=== PATIENT | female | born 1935 | race Caucasian/White ===

== ENCOUNTER 2020-03-07 07:07 | Inpatient (IN) | payer MEDICAID, MEDICARE ==
[2020-03-07] MEDS ORDERED: Sodium Chloride 0.9% 10 ML Syringe FLUSH PRN (07:39)
[2020-03-07] MEDS ORDERED: LORazepam 2 MG/ML SDV IVPUSH ONE (07:42)
[2020-03-07] MEDS ORDERED: Zolpidem 10 MG Tab PO STA (07:43)
[2020-03-07] MEDS ORDERED: Potassium Chloride 20 MEQ Tab.ER PO ONE (08:40)
[2020-03-07] MEDS ORDERED: NS + KCl 20mEq/L 1,000 ML IV SCH (08:45)
--- NOTE | 2020-03-07 09:16 | EDM.PDOC ---
ED HPI GENERAL MEDICAL PROBLEM - General Chief Complaint: General Time Seen by Provider: 03/07/20 07:40 Source of Information: Reports: Patient, Family History Limitations: Reports: No Limitations - History of Present Illness INITIAL COMMENTS - FREE TEXT/NARRATIVE: Patient presented to the ED because of weakness, poor oral intake and inability to sleep for more than 3 days. She also c/o N/V x1 without any abdominal pain. There is no cough and cold, no fever or chills. Yesterday her legs gave out because of weakness and almost fell down. 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 , Endocrine/Metabolic History: Reports: Diabetes, Type II - Past Surgical History Musculoskeletal Surgical History: Reports: Other (See Below) Social & Family History - Family History Family Medical History: Noncontributory ED ROS GENERAL - Review of Systems Review Of Systems: See Below Constitutional: Reports: Weakness HEENT: Reports: No Symptoms Respiratory: Reports: No Symptoms Cardiovascular: Reports: No Symptoms Endocrine: Reports: No Symptoms GI/Abdominal: Reports: No Symptoms : Reports: No Symptoms Musculoskeletal: Reports: No Symptoms Skin: Reports: No Symptoms Neurological: Reports: No Symptoms Psychiatric: Reports: No Symptoms ED EXAM, GENERAL - Physical Exam Exam: See Below Exam Limited By: No Limitations General Appearance: Alert, No Apparent Distress Eye Exam: Bilateral Eye: PERRL Ears: Normal External Exam, Normal Canal Nose: Normal Inspection, Normal Mucosa Throat/Mouth: Normal Inspection, Normal Lips, Normal Teeth Head: Atraumatic, Normocephalic Neck: Normal Inspection, Supple, Non-Tender, Full Range of Motion Respiratory/Chest: No Respiratory Distress, Lungs Clear, Normal Breath Sounds Cardiovascular: Normal Peripheral Pulses, Regular Rate, Rhythm, No Edema, No Gallop GI/Abdominal: Normal Bowel Sounds, Soft, Non-Tender, No Organomegaly Back Exam: Normal Inspection, Full Range of Motion Extremities: Normal Inspection, Normal Range of Motion Neurological: Alert, Oriented, CN II-XII Intact Psychiatric: Normal Affect Course - Vital Signs Text/Narrative:: Labs/EKG/CXR results was discussed with patient and his son NS with 20 MeQ KCL Klor con 40 meq po x1 Ativan 1 mg IV x1 Zolpidem 5 mg po x1 Case discussed with Dr Allen - Orders/Labs/Meds Orders: Active Orders 24 hr Category Date Time Status EKG Documentation Completion [RC] ASDIRECTED Care 03/07/20 07:41 Active Chest 1V Frontal [CR] Stat Exams 03/07/20 07:39 Taken NS + KCl 20mEq/L [Normal Saline with 20 mEq KCl] 1,000 Med 03/07/20 08:45 Active ml IV ASDIRECTED Sodium Chloride 0.9% [Normal Saline] 1,000 ml Med 03/07/20 08:30 Active IV ASDIRECTED Sodium Chloride 0.9% [Saline Flush] Med 03/07/20 07:39 Active 10 ml FLUSH ASDIRECTED PRN Saline Lock Insert [OM.PC] Routine Oth 03/07/20 07:39 Ordered EKG 12 Lead [EK] Routine Ther 03/07/20 07:39 Ordered Medication Orders Sodium Chloride (Normal Saline) 1,000 mls @ 500 mls/hr IV ASDIRECTED NICHOLAS Potassium Chloride/Sodium Chloride (Normal Saline With 20 Meq Kcl) 1,000 mls @ 500 mls/hr IV ASDIRECTED NICHOLAS Last Admin: 03/07/20 08:48 Dose: 500 mls/hr Documented by: JIMMY Sodium Chloride (Saline Flush) 10 ml FLUSH ASDIRECTED PRN PRN Reason: Keep Vein Open Labs: Laboratory Tests 03/07/20 03/07/20 03/07/20 Range/Units 08:05 08:05 08:05 WBC 19.9 H (4.5-12.0) X10-3/uL RBC 3.63 (3.23-5.20) x10(6)uL Hgb 10.1 L (11.5-15.5) g/dL Hct 31.2 (30.0-51.3) % MCV 85.9 (80-96) fL MCH 27.7 (27.7-33.6) pg MCHC 32.3 (32.2-35.4) g/dL RDW 17.6 H (11.5-15.5) % Plt Count 794 H (125-369) X10(3)uL MPV 7.8 (7.4-10.4) fL Add Manual Diff Yes Neutrophils % (Manual) 81 (46-82) % Band Neutrophils % 3 (0-6) % Lymphocytes % (Manual) 10 L (13-37) % Monocytes % (Manual) 5 (4-12) % Metamyelocytes % 1 H (0-0) % Sodium 135 (135-145) mmol/L Potassium 2.3 L* (3.5-5.3) mmol/L Chloride 99 L (100-110) mmol/L Carbon Dioxide 22 (21-32) mmol/L BUN 36 H (7-18) mg/dL Creatinine 1.1 H (0.55-1.02) mg/dL Est Cr Clr Drug Dosing TNP Estimated GFR (MDRD) 46 L (>60) BUN/Creatinine Ratio 32.7 H (9-20) Glucose 143 H (80-116) mg/dL Calcium 9.5 (8.6-10.2) mg/dL Total Bilirubin 1.1 (0.1-1.3) mg/dL AST 62 H (5-25) IU/L ALT 32 (12-36) U/L Alkaline Phosphatase 511 H (56-112) IU/L Troponin I 24.7 (4.0-60.3) pg/mL Total Protein 6.5 (6.0-8.0) g/dL Albumin 1.3 L* (2.9-4.5) g/dL Globulin 5.2 g/dL Albumin/Globulin Ratio 0.3 Urine Color (YELLOW) Urine Appearance (CLEAR) Urine pH (5.0-6.5) Ur Specific [place] (1.010-1.025) Urine Protein (NEGATIVE) mg/dL Urine Glucose (UA) (NORMAL) mg/dL Urine Ketones (NEGATIVE) mg/dL Urine Occult Blood (NEGATIVE) Urine Nitrite (NEGATIVE) Urine Bilirubin (NEGATIVE) Urine Urobilinogen (NEGATIVE) mg/dL Ur Leukocyte Esterase (NEGATIVE) Urine WBC (0-5) Ur Squamous Epith Cells (NS,R,O) Urine Bacteria (NS) 03/07/ Range/Units 08:35 WBC (4.5-12.0) X10-3/uL RBC (3.23-5.20) x10(6)uL Hgb (11.5-15.5) g/dL Hct (30.0-51.3) % MCV (80-96) fL MCH (27.7-33.6) pg MCHC (32.2-35.4) g/dL RDW (11.5-15.5) % Plt Count (125-369) X10(3)uL MPV (7.4-10.4) fL Add Manual Diff Neutrophils % (Manual) (46-82) % Band Neutrophils % (0-6) % Lymphocytes % (Manual) (13-37) % Monocytes % (Manual) (4-12) % Metamyelocytes % (0-0) % Sodium (135-145) mmol/L Potassium (3.5-5.3) mmol/L Chloride (100-110) mmol/L Carbon Dioxide (21-32) mmol/L BUN (7-18) mg/dL Creatinine (0.55-1.02) mg/dL Est Cr Clr Drug Dosing Estimated GFR (MDRD) (>60) BUN/Creatinine Ratio (9-20) Glucose (80-116) mg/dL Calcium (8.6-10.2) mg/dL Total Bilirubin (0.1-1.3) mg/dL AST (5-25) IU/L ALT (12-36) U/L Alkaline Phosphatase (56-112) IU/L Troponin I (4.0-60.3) pg/mL Total Protein (6.0-8.0) g/dL Albumin (2.9-4.5) g/dL Globulin g/dL Albumin/Globulin Ratio Urine Color Yellow (YELLOW) Urine Appearance Slightly cloudy (CLEAR) Urine pH 6.0 (5.0-6.5) Ur Specific [place] 1.010 (1.010-1.025) Urine Protein Trace (NEGATIVE) mg/dL Urine Glucose (UA) Normal (NORMAL) mg/dL Urine Ketones 15 H (NEGATIVE) mg/dL Urine Occult Blood Negative (NEGATIVE) Urine Nitrite Negative (NEGATIVE) Urine Bilirubin Negative (NEGATIVE) Urine Urobilinogen 1 H (NEGATIVE) mg/dL Ur Leukocyte Esterase Moderate H (NEGATIVE) Urine WBC 20-30 H (0-5) Ur Squamous Epith Cells Occasional (NS,R,O) Urine Bacteria Many H (NS) Meds: Medications Generic Name Dose Route Start Last Admin Trade Name Freq PRN Reason Stop Dose Admin Sodium Chloride 1,000 mls @ 500 mls/hr 03/07/20 08:30 Normal Saline IV ASDIRECTED NICHOLAS Potassium Chloride/Sodium Chloride 1,000 mls @ 500 mls/hr 03/07/20 08:45 03/07/20 08:48 Normal Saline With 20 Meq Kcl IV 500 mls/hr ASDIRECTED NICHOLAS Administration Sodium Chloride 10 ml 03/07/20 07:39 Saline Flush FLUSH ASDIRECTED PRN Keep Vein Open Discontinued Medications Generic Name Dose Route Start Last Admin Trade Name Freq PRN Reason Stop Dose Admin Lorazepam 1 mg 03/07/20 07:42 Ativan IVPUSH 03/07/20 07:43 ONETIME ONE Potassium Chloride 40 meq 03/07/20 08:40 03/07/20 08:48 Klor-Con M20 PO 03/07/20 08:41 40 meq ONETIME ONE Administration Zolpidem Tartrate 5 mg 03/07/20 07:43 Ambien PO 03/07/20 07:44 NOW STA Departure - Departure Time of Disposition: 09:25 Disposition: Refer to Observation Condition: Good Clinical Impression: Dehydration, Hypokalemia, Weakness, Hypoalbuminemia, UTI (urinary tract infection) - Discharge Information Referrals: PCP,None [Primary Care Provider] - - My Orders Last 24 Hours: My Active Orders 03/07/20 07:39 Chest 1V Frontal [CR] Stat Sodium Chloride 0.9% [Saline Flush] 10 ml FLUSH ASDIRECTED PRN Saline Lock Insert [OM.PC] Routine EKG 12 Lead [EK] Routine 03/07/20 07:41 EKG Documentation Completion [RC] ASDIRECTED 03/07/20 08:30 Sodium Chloride 0.9% [Normal Saline] 1,000 ml IV ASDIRECTED 03/07/20 08:45 NS + KCl 20mEq/L [Normal Saline with 20 mEq KCl] 1,000 ml IV ASDIRECTED - Assessment/Plan Last 24 Hours: My Active Orders 03/07/20 07:39 Chest 1V Frontal [CR] Stat Sodium Chloride 0.9% [Saline Flush] 10 ml FLUSH ASDIRECTED PRN Saline Lock Insert [OM.PC] Routine EKG 12 Lead [EK] Routine 03/07/20 07:41 EKG Documentation Completion [RC] ASDIRECTED 03/07/20 08:30 Sodium Chloride 0.9% [Normal Saline] 1,000 ml IV ASDIRECTED 03/07/20 08:45 NS + KCl 20mEq/L [Normal Saline with 20 mEq KCl] 1,000 ml IV ASDIRECTED
--- NOTE | 2020-03-07 10:48 | CR ---
INDICATION: Weakness. CHEST, ONE VIEW: AP upright portable view of the chest 03/07/20 was compared with 08/13/16 and 08/23/16. The heart remains normal in size and shape. The aorta is tortuous with some minimal calcification in the arch. Lungs appear to be somewhat hyperaerated with flattened diaphragm leafs suggesting COPD. A mild dextroconcave scoliosis of the thoracic spine is noted with hypertrophic degenerative changes of mild to moderate degree in the mid thoracic spine. IMPRESSION: 1. No acute process. 2. COPD. 3. ASD aorta. 4. Mild scoliosis with DJD spine. MTDD
[2020-03-07] MEDS ORDERED: cefTRIAXone 1 GM in Sodium Chloride 0.9% 50 ML IV SCH (11:15)
[2020-03-07] MEDS: cefTRIAXone 1 GM Vial IVPUSH SCH (12:09)
[2020-03-07] MEDS: Enoxaparin 30 MG/0.3 ML Syringe SUBCUT SCH (12:13)
--- NOTE | 2020-03-07 13:36 | PCM.HP.2 ---
H&P History of Present Illness - General Date of Service: 03/07/20 Admit Problem/Dx: Admission Diagnosis/Problem Admission Diagnosis/Problem Dehydration Source of Information: Patient, Family History Limitations: Reports: No Limitations - History of Present Illness Initial Comments - Free Text/Narative: This is an 85-year-old female patient lives alone in [facility]. 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 She states for the last month she's not really eating at all or drink at all. She's become progressively more weak and has had a fall. She's also some diarrhea that is upper she is also vomited last couple days. last 3 days she's not able to get out of bed. she says she can't sleep in her mind is going all the time. she denies fevers, chills, cough, runny nose, dysuria, pyuria, hematuria, abdominal pain. she was supposed to get a pet scan today and in 2 days see oncology in [facility] in regards to the new diagnosis of malignant sarcoma of the left thigh. - Related Data Allergies/Adverse Reactions: Allergies Allergy/AdvReac Type Severity Reaction Status Date / Time lisinopril Allergy Cannot Verified 03/07/20 09:01 Remember meperidine Allergy Cannot Verified 03/07/20 09:01 Remember metformin Allergy Irritabilit Verified 03/07/20 09:01 y phenytoin Allergy Cannot Verified 03/07/20 09:01 Remember Home Medications: Home Meds Aspirin [Adult Low Dose Aspirin EC] 81 mg PO DAILY 08/06/16 [History] Pioglitazone [Actos] 15 mg PO DAILY 08/06/16 [History] Simvastatin 80 mg PO BEDTIME 08/06/16 [History] Cholecalciferol (Vitamin D3) [Vitamin D3] 25 mcg PO DAILY 03/07/20 [History] Omeprazole 20 mg PO BIDAC 03/07/20 [History] Polyvinyl Alcohol/Povidone [Refresh] 1 drop EYEBOTH ASDIRECTED PRN 03/07/20 [History] amLODIPine [Norvasc] 5 mg PO DAILY 03/07/20 [History] Past Medical History HEENT History: Reports: None Other HEENT History: wears glasses Cardiovascular History: Reports: High Cholesterol, Hypertension, SOB on Exertion Respiratory History: Reports: PE, SOB Gastrointestinal History: Reports: Bowel Obstruction, Colon Polyp, GERD Genitourinary History: Reports: Renal Disease, Other (See Below) 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 , Musculoskeletal History: Reports: Arthritis, Back Pain, Chronic Neurological History: Reports: None Psychiatric History: Reports: Anxiety Endocrine/Metabolic History: Reports: Diabetes, Type II Other Oncologic History: soft tissue sarcoma - Infectious Disease History Infectious Disease History: Reports: Measles, Mumps Other Infectious Disease History: covid neg 2 weeks done per essenthia - Past Surgical History HEENT Surgical History: Reports: Adenoidectomy, Cataract Surgery, Tonsillectomy Cardiovascular Surgical History: Reports: None Respiratory Surgical History: Reports: None GI Surgical History: Reports: Appendectomy, Colonoscopy Female Surgical History: Reports: Hysterectomy, Oophorectomy Endocrine Surgical History: Reports: None Neurological Surgical History: Reports: None Other Musculoskeletal Surgeries/Procedures:: foot surgery- bone removed ?spur Other Oncologic Surgeries/Procedures: biopsy done on lump on leg Social & Family History - Family History Family Medical History: Noncontributory - Tobacco Use Smoking Status *Q: Never Smoker Second Hand Smoke Exposure: No - Caffeine Use Caffeine Use: Reports: Soda - Recreational Drug Use Recreational Drug Use: No H&P Review of Systems - Review of Systems: Review Of Systems: See Below General: Reports: Weakness, Fatigue, Decreased Appetite HEENT: Reports: No Symptoms Cardiovascular: Reports: No Symptoms Gastrointestinal: Reports: Nausea, Vomiting Genitourinary: Reports: No Symptoms Musculoskeletal: Reports: Other (See HPI) Skin: Reports: No Symptoms Psychiatric: Reports: No Symptoms Neurological: Reports: No Symptoms Hematologic/Lymphatic: Reports: No Symptoms Immunologic: Reports: No Symptoms Exam - Exam Exam: See Below - Vital Signs Vital Signs: Last Vital Signs Temp 97.1 F 03/07/20 09:46 Pulse Resp BP Pulse Ox Weight: 133 lb 3.2 oz - Exam General: Alert, Oriented, Cooperative HEENT: Hearing Intact, Mucosa Moist & [place] Neck: Supple, Trachea Midline Lungs: Clear to Auscultation, Normal Respiratory Effort Cardiovascular: Regular Rate, Regular Rhythm GI/Abdominal Exam: Normal Bowel Sounds, Soft, Non-Tender, No Organomegaly, No Distention, No Abnormal Bruit, No Mass Extremities: Normal Inspection, Non-Tender, No Pedal Edema, Normal Capillary Refill Skin: Warm, Dry, Intact Neuro Extensive - Mental Status: Alert, Oriented x3, Normal Mood/Affect, Normal Cognition Psychiatric: Alert, Normal Affect, Normal Mood - Patient Data Lab Results Last 24 hrs: Laboratory Results - last 24 hr 03/07/20 03/07/20 03/07/20 Range/Units 08:05 08:05 08:05 WBC 19.9 H (4.5-12.0) X10-3/uL RBC 3.63 (3.23-5.20) x10(6)uL Hgb 10.1 L (11.5-15.5) g/dL Hct 31.2 (30.0-51.3) % MCV 85.9 (80-96) fL MCH 27.7 (27.7-33.6) pg MCHC 32.3 (32.2-35.4) g/dL RDW 17.6 H (11.5-15.5) % Plt Count 794 H (125-369) X10(3)uL MPV 7.8 (7.4-10.4) fL Add Manual Diff Yes Neutrophils % (Manual) 81 (46-82) % Band Neutrophils % 3 (0-6) % Lymphocytes % (Manual) 10 L (13-37) % Monocytes % (Manual) 5 (4-12) % Metamyelocytes % 1 H (0-0) % Sodium 135 (135-145) mmol/L Potassium 2.3 L* (3.5-5.3) mmol/L Chloride 99 L (100-110) mmol/L Carbon Dioxide 22 (21-32) mmol/L BUN 36 H (7-18) mg/dL Creatinine 1.1 H (0.55-1.02) mg/dL Est Cr Clr Drug Dosing TNP Estimated GFR (MDRD) 46 L (>60) BUN/Creatinine Ratio 32.7 H (9-20) Glucose 143 H (80-116) mg/dL Lactic Acid (0.4-2.0) mmol/L Calcium 9.5 (8.6-10.2) mg/dL Total Bilirubin 1.1 (0.1-1.3) mg/dL AST 62 H (5-25) IU/L ALT 32 (12-36) U/L Alkaline Phosphatase 511 H (56-112) IU/L Troponin I 24.7 (4.0-60.3) pg/mL Total Protein 6.5 (6.0-8.0) g/dL Albumin 1.3 L* (2.9-4.5) g/dL Globulin 5.2 g/dL Albumin/Globulin Ratio 0.3 Urine Color (YELLOW) Urine Appearance (CLEAR) Urine pH (5.0-6.5) Ur Specific [place] (1.010-1.025) Urine Protein (NEGATIVE) mg/dL Urine Glucose (UA) (NORMAL) mg/dL Urine Ketones (NEGATIVE) mg/dL Urine Occult Blood (NEGATIVE) Urine Nitrite (NEGATIVE) Urine Bilirubin (NEGATIVE) Urine Urobilinogen (NEGATIVE) mg/dL Ur Leukocyte Esterase (NEGATIVE) Urine WBC (0-5) Ur Squamous Epith Cells (NS,R,O) Urine Bacteria (NS) 03/07/20 03/07/20 Range/Units 08:35 09:45 WBC (4.5-12.0) X10-3/uL RBC (3.23-5.20) x10(6)uL Hgb (11.5-15.5) g/dL Hct (30.0-51.3) % MCV (80-96) fL MCH (27.7-33.6) pg MCHC (32.2-35.4) g/dL RDW (11.5-15.5) % Plt Count (125-369) X10(3)uL MPV (7.4-10.4) fL Add Manual Diff Neutrophils % (Manual) (46-82) % Band Neutrophils % (0-6) % Lymphocytes % (Manual) (13-37) % Monocytes % (Manual) (4-12) % Metamyelocytes % (0-0) % Sodium (135-145) mmol/L Potassium (3.5-5.3) mmol/L Chloride (100-110) mmol/L Carbon Dioxide (21-32) mmol/L BUN (7-18) mg/dL Creatinine (0.55-1.02) mg/dL Est Cr Clr Drug Dosing Estimated GFR (MDRD) (>60) BUN/Creatinine Ratio (9-20) Glucose (80-116) mg/dL Lactic Acid 1.1 (0.4-2.0) mmol/L Calcium (8.6-10.2) mg/dL Total Bilirubin (0.1-1.3) mg/dL AST (5-25) IU/L ALT (12-36) U/L Alkaline Phosphatase (56-112) IU/L Troponin I (4.0-60.3) pg/mL Total Protein (6.0-8.0) g/dL Albumin (2.9-4.5) g/dL Globulin g/dL Albumin/Globulin Ratio Urine Color Yellow (YELLOW) Urine Appearance Slightly cloudy (CLEAR) Urine pH 6.0 (5.0-6.5) Ur Specific [place] 1.010 (1.010-1.025) Urine Protein Trace (NEGATIVE) mg/dL Urine Glucose (UA) Normal (NORMAL) mg/dL Urine Ketones 15 H (NEGATIVE) mg/dL Urine Occult Blood Negative (NEGATIVE) Urine Nitrite Negative (NEGATIVE) Urine Bilirubin Negative (NEGATIVE) Urine Urobilinogen 1 H (NEGATIVE) mg/dL Ur Leukocyte Esterase Moderate H (NEGATIVE) Urine WBC 20-30 H (0-5) Ur Squamous Epith Cells Occasional (NS,R,O) Urine Bacteria Many H (NS) Result Diagrams: 03/07/20 08:05 03/07/20 08:05 Sepsis Event Note - Evaluation Sepsis Screening Result: No Definite Risk - Focused Exam Vital Signs: Vital Signs Temp 03/07/20 09:46 97.1 F - Problem List (1) Dehydration SNOMED Code(s): 49619302 ICD Code: E86.0 - DEHYDRATION Status: Acute Current Visit: Yes (2) Hypokalemia SNOMED Code(s): 48669437 ICD Code: E87.6 - HYPOKALEMIA Status: Acute Current Visit: Yes (3) Hypoalbuminemia SNOMED Code(s): 751868666 ICD Code: E88.09 - OTH DISORDERS OF PLASMA-PROTEIN METABOLISM, NEC Status: Acute Current Visit: Yes (4) Anemia SNOMED Code(s): 394466521 ICD Code: D64.9 - ANEMIA, UNSPECIFIED Status: Acute Current Visit: Yes (5) Thrombocytosis SNOMED Code(s): 7307471 ICD Code: D47.3 - ESSENTIAL (HEMORRHAGIC) THROMBOCYTHEMIA Status: Acute Current Visit: Yes (6) Acute kidney injury SNOMED Code(s): 84335149, 92136524 ICD Code: N17.9 - ACUTE KIDNEY FAILURE, UNSPECIFIED Status: Acute Current Visit: Yes (7) Sarcoma SNOMED Code(s): 163060731 ICD Code: 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 OF CONNECTIVE AND SOFT TISSUE, UNSP Status: Acute Current Visit: Yes (8) Palliative care status SNOMED Code(s): 049452007 ICD Code: Z51.5 - ENCOUNTER FOR PALLIATIVE CARE Status: Acute Current Visit: Yes Problem List Initiated/Reviewed/Updated: Yes Orders Last 24hrs: Active Orders 24 hr Category Date Time Status Admission Status [Patient Status] [ADT] Routine ADT 03/07/20 11:01 Active Accu Check [Blood Glucose Check, Bedside] [RC] BIDMEALS Care 03/07/20 11:09 Active Antiembolic Devices [RC] .Routine Care 03/07/20 11:04 Active EKG Documentation Completion [RC] ASDIRECTED Care 03/07/20 07:41 Active Up With Assistance [RC] ASDIRECTED Care 03/07/20 11:02 Active Vital Signs [RC] Q4H Care 03/07/20 11:03 Active Consult to Occupational Therapy [OT Evaluation and Cons 03/07/20 11:10 Active Treatment] [CONS] Routine Consult to Physical Therapy [PT Evaluation and Cons 03/07/20 11:09 Active Treatment] [CONS] Routine Carbohydrate Counting [Consistent Carbohydrate Diet] [ Diet 03/07/20 Dinner Active DIET] BASIC METABOLIC PANEL,BMP [CHEM] AM Lab 03/08/20 06:00 Ordered CBC WITH AUTO DIFF [HEME] AM Lab 03/08/20 05:11 Ordered CULTURE BLOOD [BC] Urgent Lab 03/07/20 09:45 Received CULTURE BLOOD [BC] Urgent Lab 03/07/20 09:50 Received CULTURE URINE [RM] Stat Lab 03/07/20 08:35 Received Aspirin [Halfprin] Med 03/08/20 09:00 Ordered 81 mg PO DAILY Cholecalciferol (Vitamin D3) [Vitamin D3] Med 03/08/20 09:00 Ordered 25 mcg PO DAILY Enoxaparin [Lovenox] Med 03/07/20 12:00 Active 30 mg SUBCUT Q24H Mirtazapine [Remeron] Med 03/07/20 21:00 Ordered 7.5 mg PO BEDTIME NS + KCl 20mEq/L [Normal Saline with 20 mEq KCl] 1,000 Med 03/07/20 08:45 Active ml IV ASDIRECTED Omeprazole [Omeprazole] Med 03/07/20 17:30 Ordered 20 mg PO BIDAC Pioglitazone [Actos] Med 03/08/20 09:00 Ordered 15 mg PO DAILY Polyvinyl Alcohol/Povidone [Refresh] Med 03/07/20 11:04 Ordered DOSE each EYEBOTH ASDIRECTED PRN Simvastatin [Simvastatin] Med 03/07/20 21:00 Ordered 80 mg PO BEDTIME Sodium Chloride 0.9% [Normal Saline] 1,000 ml Med 03/07/20 08:30 Active IV ASDIRECTED Sodium Chloride 0.9% [Saline Flush] Med 03/07/20 07:39 Active 10 ml FLUSH ASDIRECTED PRN amLODIPine [Norvasc] Med 03/08/20 09:00 Ordered 5 mg PO DAILY cefTRIAXone [Rocephin] Med 03/07/20 11:30 Active 1 gm IVPUSH Q24H Blood Culture x2 Reflex Set [OM.PC] Urgent Oth 03/07/20 09:19 Ordered SCD [Sequential Compression Device] [OM.PC] Routine Oth 03/07/20 11:04 Ordered SCD [Sequential Compression Device] [OM.PC] Routine Oth 03/07/20 11:07 Ordered Saline Lock Insert [OM.PC] Routine Oth 03/07/20 07:39 Ordered Code Status [Resuscitation Status] Routine Resus Stat 03/07/20 11:02 Ordered EKG 12 Lead [EK] Routine Ther 03/07/20 07:39 Ordered Medication Orders Amlodipine Besylate (Norvasc) 5 mg PO DAILY NICHOLAS Artificial Tears (Refresh) each EYEBOTH ASDIRECTED PRN PRN Reason: Dry Eyes Aspirin (Halfprin) 81 mg PO DAILY NICHOLAS Ceftriaxone Sodium (Rocephin) 1 gm IVPUSH Q24H [facility] Last Admin: 03/07/20 12:09 Dose: 1 gm Documented by: ASCHPEG Cholecalciferol (Vitamin D3) 25 mcg PO DAILY NICHOLAS Enoxaparin Sodium (Lovenox) 30 mg SUBCUT Q24H NICHOLAS Last Admin: 03/07/20 12:13 Dose: 30 mg Documented by: ASCHPEG Sodium Chloride (Normal Saline) 1,000 mls @ 125 mls/hr IV ASDIRECTED NICHOLAS Potassium Chloride/Sodium Chloride (Normal Saline With 20 Meq Kcl) 1,000 mls @ 125 mls/hr IV ASDIRECTED NICHOLAS Last Admin: 03/07/20 08:48 Dose: 500 mls/hr Documented by: JIMMY Mirtazapine (Remeron) 7.5 mg PO BEDTIME NICHOLAS Non-Formulary Medication (Omeprazole [Omeprazole]) 20 mg PO BIDAC NICHOLAS Non-Formulary Medication (Pioglitazone [Actos]) 15 mg PO DAILY NICHOLAS Non-Formulary Medication (Simvastatin [Simvastatin]) 80 mg PO BEDTIME NICHOLAS Sodium Chloride (Saline Flush) 10 ml FLUSH ASDIRECTED PRN PRN Reason: Keep Vein Open Assessment/Plan Comment:: 1. Admit for observation 2. IV fluids 3. IV antibiotics 4. SCDs/Lovenox for clot prophylaxis 5. Regular diet 6. Dietary consultation 7. PT/OT 8. Up with assist 9. Remeron for sleep 10. Blood cultures have been ordered - Mortality Measure Prognosis:: Good
[2020-03-07] MEDS ORDERED: Carboxymethylcellulose 0.5%/Glycerin 0.9% Ophth Soln 15 ML Bottle EYEBOTH PRN (13:52)
[2020-03-07] MEDS: Acetaminophen 325 MG Tab PO PRN (15:42)
[2020-03-07] MEDS: (Omeprazole [Omeprazole] 20 MG) *PTOM PO SCH (17:26)
[2020-03-07] MEDS: Sodium Chloride 0.9% 1,000 ML IV SCH (20:22)
[2020-03-07] MEDS ORDERED: Potassium Chloride 10 MEQ Tab.ER *PTOM PO SCH (21:00)
[2020-03-07] MEDS ORDERED: Mirtazapine 15 MG Tab PO SCH (21:00)
[2020-03-07] MEDS: Zolpidem 5 MG Tab PO SCH (21:53)
[2020-03-08] MEDS: Sodium Chloride 0.9% 1,000 ML IV SCH ×2 (04:06→15:10)
[2020-03-08] MEDS: (Omeprazole [Omeprazole] 20 MG) *PTOM PO SCH (06:58)
--- NOTE | 2020-03-08 08:01 | PCM.PN ---
- General Info Date of Service: 03/08/20 Admission Dx/Problem (Free Text): Patient slept well last night and there for feels much better. She still feels cold. No fevers, dysuria, pyuria, hematuria, cough, shortness breath, chest pain. She still is little pain in her left thigh from her tumor. She was given tramadol list doesn't think she's tried it. - Patient Data Vitals - Most Recent: Last Vital Signs Temp 97.5 F 03/08/20 06:30 Pulse 80 03/08/20 06:30 Resp 18 03/08/20 06:30 BP 120/63 03/08/20 06:30 Pulse Ox 91 L 03/08/20 06:30 Weight - Most Recent: 136 lb 4.8 oz I&O - Last 24 Hours: Intake & Output 03/07/20 03/08/20 03/08/20 22:59 06:59 14:59 Intake Total 1140 1161 Balance 1140 1161 Lab Results Last 24 Hours: Laboratory Results - last 24 hr 03/07/20 03/07/20 03/07/20 Range/Units 08:05 08:05 08:05 WBC 19.9 H (4.5-12.0) X10-3/uL RBC 3.63 (3.23-5.20) x10(6)uL Hgb 10.1 L (11.5-15.5) g/dL Hct 31.2 (30.0-51.3) % MCV 85.9 (80-96) fL MCH 27.7 (27.7-33.6) pg MCHC 32.3 (32.2-35.4) g/dL RDW 17.6 H (11.5-15.5) % Plt Count 794 H (125-369) X10(3)uL MPV 7.8 (7.4-10.4) fL Add Manual Diff Yes Neutrophils % (Manual) 81 (46-82) % Band Neutrophils % 3 (0-6) % Lymphocytes % (Manual) 10 L (13-37) % Monocytes % (Manual) 5 (4-12) % Metamyelocytes % 1 H (0-0) % Sodium 135 (135-145) mmol/L Potassium 2.3 L* (3.5-5.3) mmol/L Chloride 99 L (100-110) mmol/L Carbon Dioxide 22 (21-32) mmol/L BUN 36 H (7-18) mg/dL Creatinine 1.1 H (0.55-1.02) mg/dL Est Cr Clr Drug Dosing TNP Estimated GFR (MDRD) 46 L (>60) BUN/Creatinine Ratio 32.7 H (9-20) Glucose 143 H (80-116) mg/dL POC Glucose (74-100) mg/dL Lactic Acid (0.4-2.0) mmol/L Calcium 9.5 (8.6-10.2) mg/dL Total Bilirubin 1.1 (0.1-1.3) mg/dL AST 62 H (5-25) IU/L ALT 32 (12-36) U/L Alkaline Phosphatase 511 H (56-112) IU/L Troponin I 24.7 (4.0-60.3) pg/mL Total Protein 6.5 (6.0-8.0) g/dL Albumin 1.3 L* (2.9-4.5) g/dL Globulin 5.2 g/dL Albumin/Globulin Ratio 0.3 Urine Color (YELLOW) Urine Appearance (CLEAR) Urine pH (5.0-6.5) Ur Specific [place] (1.010-1.025) Urine Protein (NEGATIVE) mg/dL Urine Glucose (UA) (NORMAL) mg/dL Urine Ketones (NEGATIVE) mg/dL Urine Occult Blood (NEGATIVE) Urine Nitrite (NEGATIVE) Urine Bilirubin (NEGATIVE) Urine Urobilinogen (NEGATIVE) mg/dL Ur Leukocyte Esterase (NEGATIVE) Urine WBC (0-5) Ur Squamous Epith Cells (NS,R,O) Urine Bacteria (NS) 03/07/20 03/07/20 03/07/20 Range/Units 08:35 09:45 17:21 WBC (4.5-12.0) X10-3/uL RBC (3.23-5.20) x10(6)uL Hgb (11.5-15.5) g/dL Hct (30.0-51.3) % MCV (80-96) fL MCH (27.7-33.6) pg MCHC (32.2-35.4) g/dL RDW (11.5-15.5) % Plt Count (125-369) X10(3)uL MPV (7.4-10.4) fL Add Manual Diff Neutrophils % (Manual) (46-82) % Band Neutrophils % (0-6) % Lymphocytes % (Manual) (13-37) % Monocytes % (Manual) (4-12) % Metamyelocytes % (0-0) % Sodium (135-145) mmol/L Potassium (3.5-5.3) mmol/L Chloride (100-110) mmol/L Carbon Dioxide (21-32) mmol/L BUN (7-18) mg/dL Creatinine (0.55-1.02) mg/dL Est Cr Clr Drug Dosing Estimated GFR (MDRD) (>60) BUN/Creatinine Ratio (9-20) Glucose (80-116) mg/dL POC Glucose 202 H (74-100) mg/dL Lactic Acid 1.1 (0.4-2.0) mmol/L Calcium (8.6-10.2) mg/dL Total Bilirubin (0.1-1.3) mg/dL AST (5-25) IU/L ALT (12-36) U/L Alkaline Phosphatase (56-112) IU/L Troponin I (4.0-60.3) pg/mL Total Protein (6.0-8.0) g/dL Albumin (2.9-4.5) g/dL Globulin g/dL Albumin/Globulin Ratio Urine Color Yellow (YELLOW) Urine Appearance Slightly cloudy (CLEAR) Urine pH 6.0 (5.0-6.5) Ur Specific [place] 1.010 (1.010-1.025) Urine Protein Trace (NEGATIVE) mg/dL Urine Glucose (UA) Normal (NORMAL) mg/dL Urine Ketones 15 H (NEGATIVE) mg/dL Urine Occult Blood Negative (NEGATIVE) Urine Nitrite Negative (NEGATIVE) Urine Bilirubin Negative (NEGATIVE) Urine Urobilinogen 1 H (NEGATIVE) mg/dL Ur Leukocyte Esterase Moderate H (NEGATIVE) Urine WBC 20-30 H (0-5) Ur Squamous Epith Cells Occasional (NS,R,O) Urine Bacteria Many H (NS) 03/08/20 03/08/20 Range/Units 07:05 07:05 WBC 21.8 H (4.5-12.0) X10-3/uL RBC 3.58 (3.23-5.20) x10(6)uL Hgb 9.9 L (11.5-15.5) g/dL Hct 30.8 (30.0-51.3) % MCV 85.9 (80-96) fL MCH 27.5 L (27.7-33.6) pg MCHC 32.0 L (32.2-35.4) g/dL RDW 18.0 H (11.5-15.5) % Plt Count 808 H (125-369) X10(3)uL MPV 8.2 (7.4-10.4) fL Add Manual Diff Yes Neutrophils % (Manual) (46-82) % Band Neutrophils % (0-6) % Lymphocytes % (Manual) (13-37) % Monocytes % (Manual) (4-12) % Metamyelocytes % (0-0) % Sodium 138 (135-145) mmol/L Potassium 3.0 L (3.5-5.3) mmol/L Chloride 105 D (100-110) mmol/L Carbon Dioxide 22 (21-32) mmol/L BUN 28 H (7-18) mg/dL Creatinine 0.9 (0.55-1.02) mg/dL Est Cr Clr Drug Dosing 32.83 Estimated GFR (MDRD) 60 (>60) BUN/Creatinine Ratio 31.1 H (9-20) Glucose 145 H (80-116) mg/dL POC Glucose (74-100) mg/dL Lactic Acid (0.4-2.0) mmol/L Calcium 8.7 (8.6-10.2) mg/dL Total Bilirubin (0.1-1.3) mg/dL AST (5-25) IU/L ALT (12-36) U/L Alkaline Phosphatase (56-112) IU/L Troponin I (4.0-60.3) pg/mL Total Protein (6.0-8.0) g/dL Albumin (2.9-4.5) g/dL Globulin g/dL Albumin/Globulin Ratio Urine Color (YELLOW) Urine Appearance (CLEAR) Urine pH (5.0-6.5) Ur Specific [place] (1.010-1.025) Urine Protein (NEGATIVE) mg/dL Urine Glucose (UA) (NORMAL) mg/dL Urine Ketones (NEGATIVE) mg/dL Urine Occult Blood (NEGATIVE) Urine Nitrite (NEGATIVE) Urine Bilirubin (NEGATIVE) Urine Urobilinogen (NEGATIVE) mg/dL Ur Leukocyte Esterase (NEGATIVE) Urine WBC (0-5) Ur Squamous Epith Cells (NS,R,O) Urine Bacteria (NS) Med Orders - Current: Current Medications Acetaminophen (Tylenol) 650 mg PO Q4H PRN PRN Reason: Pain Last Admin: 03/07/20 15:42 Dose: 650 mg Documented by: Amlodipine Besylate (Norvasc) 5 mg PO DAILY [facility] Aspirin (Halfprin) 81 mg PO DAILY [facility] Carboxymethylcellulose (Refresh Optive) 0 ml EYEBOTH ASDIRECTED PRN PRN Reason: Dry Eyes Ceftriaxone Sodium (Rocephin) 1 gm IVPUSH Q24H [facility] Last Admin: 03/07/20 12:09 Dose: 1 gm Documented by: Cholecalciferol (Vitamin D3) 25 mcg PO DAILY [facility] Enoxaparin Sodium (Lovenox) 30 mg SUBCUT Q24H [facility] Last Admin: 03/07/20 12:13 Dose: 30 mg Documented by: Sodium Chloride (Normal Saline) 1,000 mls @ 75 mls/hr IV ASDIRECTED [facility] Last Admin: 03/08/20 04:06 Dose: 125 mls/hr Documented by: (Omeprazole [ Omeprazole] 20 Mg) * Ptom 20 mg PO BIDAC [facility] Last Admin: 03/08/20 06:58 Dose: 20 mg Documented by: (Pioglitazone [Actos (] 15 Mg) *Ptom) 15 mg PO DAILY [facility] (Simvastatin [ Simvastatin] 80 Mg) *Ptom 80 mg PO BEDTIME [facility] Last Admin: 03/07/20 21:49 Dose: 80 mg Documented by: Potassium Chloride (Klor-Con 10) 20 meq PO TID [facility] Sodium Chloride (Saline Flush) 10 ml FLUSH ASDIRECTED PRN PRN Reason: Keep Vein Open Tramadol HCl (Ultram) 50 mg PO Q6H PRN PRN Reason: Pain Zolpidem Tartrate (Ambien) 5 mg PO BEDTIME [facility] Last Admin: 03/07/20 21:53 Dose: 5 mg Documented by: Discontinued Medications Potassium Chloride/Sodium Chloride (Normal Saline With 20 Meq Kcl) 1,000 mls @ 125 mls/hr IV ASDIRECTED [facility] Last Admin: 03/07/20 08:48 Dose: 500 mls/hr Documented by: Lorazepam (Ativan) 1 mg IVPUSH ONETIME ONE Stop: 03/07/20 07:43 Last Admin: 03/07/20 12:03 Dose: Not Given Documented by: Mirtazapine (Remeron) 7.5 mg PO BEDTIME [facility] Potassium Chloride (Klor-Con M20) 40 meq PO ONETIME ONE Stop: 03/07/20 08:41 Last Admin: 03/07/20 08:48 Dose: 40 meq Documented by: Potassium Chloride (Klor-Con 10) 20 meq PO BID [facility] Last Admin: 03/07/20 21:50 Dose: 20 meq Documented by: Zolpidem Tartrate (Ambien) 5 mg PO NOW STA Stop: 03/07/20 07:44 Last Admin: 03/07/20 18:24 Dose: Not Given Documented by: - Exam General: Alert, Oriented Lungs: Clear to Auscultation, Normal Respiratory Effort Cardiovascular: Regular Rate, Regular Rhythm, No Murmurs Extremities: No Pedal Edema Psy/Mental Status: Alert, Normal Affect, Normal Mood Sepsis Event Note - Evaluation Sepsis Screening Result: No Definite Risk - Focused Exam Vital Signs: Vital Signs Temp Pulse Resp BP Pulse Ox 03/08/20 06:30 97.5 F 80 18 120/63 91 L 03/07/20 22:35 97.8 F 78 20 97/45 L 94 L - Problem List & Annotations (1) Dehydration SNOMED Code(s): 05097781 Code(s): E86.0 - DEHYDRATION Status: Acute Current Visit: Yes (2) Hypokalemia SNOMED Code(s): 38672829 Code(s): E87.6 - HYPOKALEMIA Status: Acute Current Visit: Yes (3) Hypoalbuminemia SNOMED Code(s): 834849162 Code(s): E88.09 - OTH DISORDERS OF PLASMA-PROTEIN METABOLISM, NEC Status: Acute Current Visit: Yes (4) Anemia SNOMED Code(s): 577705583 Code(s): D64.9 - ANEMIA, UNSPECIFIED Status: Acute Current Visit: Yes (5) Thrombocytosis SNOMED Code(s): 0011963 Code(s): D47.3 - ESSENTIAL (HEMORRHAGIC) THROMBOCYTHEMIA Status: Acute Current Visit: Yes (6) Acute kidney injury SNOMED Code(s): 73001504, 30517016 Code(s): N17.9 - ACUTE KIDNEY FAILURE, UNSPECIFIED Status: Acute Current Visit: Yes (7) Sarcoma SNOMED Code(s): 023758779 Code(s): 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 OF CONNECTIVE AND SOFT TISSUE, UNSP Status: Acute Current Visit: Yes (8) Palliative care status SNOMED Code(s): 645723131 Code(s): Z51.5 - ENCOUNTER FOR PALLIATIVE CARE Status: Acute Current Visit: Yes (9) UTI (urinary tract infection) SNOMED Code(s): 08869034 Code(s): N39.0 - URINARY TRACT INFECTION, SITE NOT SPECIFIED Status: Acute Current Visit: Yes - Problem List Review Problem List Initiated/Reviewed/Updated: Yes - My Orders Last 24 Hours: My Active Orders 03/07/20 11:01 Admission Status [Patient Status] [ADT] Routine 03/07/20 11:02 Up With Assistance [RC] ASDIRECTED Code Status [Resuscitation Status] Routine 03/07/20 11:03 Vital Signs [RC] Q4H 03/07/20 11:04 Antiembolic Devices [RC] .Routine SCD [Sequential Compression Device] [OM.PC] Routine 03/07/20 11:07 SCD [Sequential Compression Device] [OM.PC] Routine 03/07/20 11:09 Accu Check [Blood Glucose Check, Bedside] [RC] BIDMEALS Consult to Physical Therapy [PT Evaluation and Treatment] [CONS] Routine 03/07/20 11:10 Consult to Occupational Therapy [OT Evaluation and Treatment] [CONS] Routine 03/07/20 11:30 cefTRIAXone [Rocephin] 1 gm IVPUSH Q24H 03/07/20 12:00 Enoxaparin [Lovenox] 30 mg SUBCUT Q24H 03/07/20 13:52 Carboxymethylcellulos/Glycerin [Refresh Optive] 0 ml EYEBOTH ASDIRECTED PRN 03/07/20 15:10 Acetaminophen [TylenoL] 650 mg PO Q4H PRN 03/07/20 Dinner Carbohydrate Counting [Consistent Carbohydrate Diet] [DIET] 03/07/20 16:41 traMADol [Ultram] 50 mg PO Q6H PRN 03/07/20 17:30 Omeprazole [Omeprazole] 20 mg PO BIDAC 03/07/20 21:00 Simvastatin [Simvastatin] 80 mg PO BEDTIME Zolpidem [Ambien] 5 mg PO BEDTIME 03/08/20 07:05 CBC WITH AUTO DIFF [HEME] AM 03/08/20 07:58 Consult to Dietary [Consult to Legal Executive] [CONS] Routine 03/08/20 09:00 Aspirin [Halfprin] 81 mg PO DAILY Cholecalciferol (Vitamin D3) [Vitamin D3] 25 mcg PO DAILY Pioglitazone [Actos] 15 mg PO DAILY Potassium Chloride [Klor-Con 10] 20 meq PO TID amLODIPine [Norvasc] 5 mg PO DAILY 03/09/20 06:00 BASIC METABOLIC PANEL,BMP [CHEM] AM - Plan Plan:: 1. Decrease IV rate to 75 mL an hour 2. PT/OT. 3. Recheck CBC and panel 8 in the AM 4. Increased potassium chloride 20 milk was to 3 times a day 5. Up in chair and ambulate with assist. 6. Dietary consultation
[2020-03-08] MEDS: traMADol 50 MG Tab PO PRN (08:02)
[2020-03-08] MEDS ORDERED: Potassium Chloride 10 MEQ Tab.ER *PTOM PO SCH (09:00)
[2020-03-08] MEDS ORDERED: PIOGLITAZONE 15 MG PO SCH (09:00)
[2020-03-08] MEDS ORDERED: Carboxymethylcellulose 0.5%/Glycerin 0.9% Ophth Soln 15 ML Bottle EYEBOTH PRN (09:24)
[2020-03-08] MEDS: Aspirin 81 MG Tab.EC PO SCH (09:55)
[2020-03-08] MEDS: Potassium Chloride 20 MEQ Tab.ER PO SCH ×3 (09:55→20:23)
[2020-03-08] MEDS: amLODIPine 5 MG Tab PO SCH (09:55)
[2020-03-08] MEDS: Cholecalciferol (Vitamin D3) 25 MCG Tab PO SCH (09:56)
[2020-03-08] MEDS: cefTRIAXone 1 GM Vial IVPUSH SCH (12:19)
[2020-03-08] MEDS: Enoxaparin 30 MG/0.3 ML Syringe SUBCUT SCH (12:20)
[2020-03-08] MEDS: Acetaminophen 325 MG Tab PO PRN ×2 (12:33→19:03)
[2020-03-08] MEDS: Pantoprazole 40 MG Tab.CR PO SCH (19:03)
[2020-03-08] MEDS: Zolpidem 5 MG Tab PO SCH (20:27)
[2020-03-08] MEDS ORDERED: Simvastatin 40 MG Tab PO SCH (21:00)
[2020-03-09] MEDS: Sodium Chloride 0.9% 1,000 ML IV SCH (04:23)
[2020-03-09] MEDS: Pantoprazole 40 MG Tab.CR PO SCH ×2 (06:37→17:45)
[2020-03-09] MEDS: Aspirin 81 MG Tab.EC PO SCH (09:35)
[2020-03-09] MEDS: Cholecalciferol (Vitamin D3) 25 MCG Tab PO SCH (09:36)
[2020-03-09] MEDS: amLODIPine 5 MG Tab PO SCH (09:36)
[2020-03-09] MEDS ORDERED: Potassium Chloride 20 MEQ Tab.ER PO SCH (10:00)
--- NOTE | 2020-03-09 11:33 | PN ---
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 She has been having increasing weakness, inability to self-care, ambulate, etc. She was unable to make it to her oncology appointment and was admitted to the hospital on 03/07/2020 for the falls, weakness, vomiting, and dehydration. The patient has been getting rehydration with IV, correction of hypokalemia, oral nutrition, and palliative cares for her underlying conditions. She is examined in her bed this morning. She denies any current pain and states she is just all over week and cannot walk. She has a poor appetite, but is attempting to eat breakfast while I was in the room. PHYSICAL EXAMINATION: VITAL SIGNS: Blood pressure 103/59, pulse 70 and regular, respirations 18, O2 saturation 95% on room air, temperature 97.4. Weight yesterday 136 pounds 4 ounces. SKIN: Showed no sign of rash. Leg was not undressed for evaluation. HEENT: Showed her mouth to be dry. LUNGS: Clear to the bases. HEART: Regular without murmur or gallop. ABDOMEN: Soft and nontender. EXTREMITIES: Showed no ankle edema. LABORATORY DATA: Potassium this morning 3.7 up from 3.0 yesterday. Creatinine 1.0. Hemoglobin yesterday 9.9. ASSESSMENT: 1. Sarcoma, left thigh. 2. Anemia. 3. Hypertension. 4. Type 2 diabetes. 5. Hypokalemia, resolving. 6. Hyperlipidemia. 7. Generalized weakness. 8. Palliative care needs. PLAN: We will continue oral nutrition therapy as directed with a goal of getting her strong enough to re-attend her oncology appointments and treatment for the sarcoma. She may need additional care in swing bed to accomplish this. /[id number] TONG/LEX SCHUSTER
[2020-03-09] MEDS: Acetaminophen 325 MG Tab PO PRN ×2 (11:36→17:45)
[2020-03-09] MEDS: Enoxaparin 30 MG/0.3 ML Syringe SUBCUT SCH (11:38)
[2020-03-09] MEDS: Potassium Chloride 20 MEQ Tab.ER PO SCH (13:45)
[2020-03-09] MEDS: traMADol 50 MG Tab PO PRN (19:36)
[2020-03-09] MEDS: Zolpidem 5 MG Tab PO SCH (21:14)
[2020-03-10] MEDS: Pantoprazole 40 MG Tab.CR PO SCH ×2 (06:33→18:07)
--- NOTE | 2020-03-10 10:39 | PN ---
DATE SEEN: 03/10/2020 HISTORY: Sandrita is an 85-year-old who was admitted to acute care on 03/07/2020 because of generalized weakness, falls, inability to take care of herself, nausea, vomiting, and dehydration. She was recently diagnosed with a sarcoma of the left thigh and was unable and was too weak to go through with her appointments with Oncology. Admission laboratory included white count of 21,000, hemoglobin 9.9, and platelets 808,000. Potassium of 3.0 and glucose of 145. This morning, she is doing better. She is examined in her bed, sitting on the edge of the bed, up eating breakfast. She is bright, alert, and reports that she feels stronger. PHYSICAL EXAMINATION: VITAL SIGNS: Blood pressure 98/55, pulse 82 and regular, respirations 18, O2 saturation 95% on room air, and temperature 97.5. HEENT: Shows pupils to be equal and reactive. Mouth is dry. LUNGS: Clear in the upper lung kilpatrick. She has slight dry rales at both bases. HEART: Regular without murmur or gallop. ABDOMEN: Soft and nontender. EXTREMITIES: Show no edema. LABORATORY DATA: White count down to 20,500, hemoglobin 9.5. Potassium 4.0. ASSESSMENT: 1. Generalized weakness. 2. Hypokalemia, improving. 3. Anemia. 4. Leukocytosis. 5. Recently diagnosed left thigh sarcoma. PLAN: Continue nutrition therapy. We will stop her potassium supplementation today. Continue her other medications, ambulation, and strengthening and anticipate discharge to home in approximately 48 hours and anticipate she would be able to carry through with her oncology and scanning appointments next week. /[id number] TONG/SAMANTHAL
[2020-03-10] MEDS: Cholecalciferol (Vitamin D3) 25 MCG Tab PO SCH (11:21)
[2020-03-10] MEDS: amLODIPine 5 MG Tab PO SCH (11:21)
[2020-03-10] MEDS: Aspirin 81 MG Tab.EC PO SCH (11:21)
[2020-03-10] MEDS: Enoxaparin 30 MG/0.3 ML Syringe SUBCUT SCH (11:22)
[2020-03-10] MEDS: traMADol 50 MG Tab PO PRN ×2 (13:59→21:13)
[2020-03-10] MEDS: Acetaminophen 325 MG Tab PO PRN (18:31)
[2020-03-10] MEDS: Zolpidem 5 MG Tab PO SCH (21:11)
[2020-03-11] MEDS: Pantoprazole 40 MG Tab.CR PO SCH ×2 (06:42→17:30)
[2020-03-11] MEDS: Aspirin 81 MG Tab.EC PO SCH (08:20)
[2020-03-11] MEDS: Cholecalciferol (Vitamin D3) 25 MCG Tab PO SCH (08:21)
[2020-03-11] MEDS: amLODIPine 5 MG Tab PO SCH (08:21)
[2020-03-11] MEDS: traMADol 50 MG Tab PO PRN ×2 (08:21→21:01)
--- NOTE | 2020-03-11 12:05 | PN ---
DATE SEEN: 03/11/2020 HISTORY: Sandrita is an 85-year-old woman who was admitted to acute care on 03/07 because of falls, weakness, and inability to carry through with her previously scheduled oncology appointment. She has a relatively recently diagnosed sarcoma of left thigh. She was admitted, given IV fluid initially, then converted to oral nutrition. She has been receiving therapy. She is up walking in the room with assistance. Her appetite has started to return and she states she feels stronger. PHYSICAL EXAMINATION: VITAL SIGNS: Blood pressure 112/79, pulse 87, respirations 18, temp 97.5. SKIN: Shows no rash. MOUTH: Dry. LUNGS: Clear in the upper lung kilpatrick. She has dry rales at the bases. HEART: Regular without murmur or gallop. ABDOMEN: Soft and nontender. EXTREMITIES: Show no edema at the ankles. LABORATORY: White count yesterday 20,500, hemoglobin 9.5. Glucose Accu-Chek 158 this morning. ASSESSMENT: 1. Generalized weakness. 2. Sarcoma, left thigh. 3. Hypertension, controlled. 4. Type 2 diabetes, on Actos. PLAN: We will continue current her medications, nutrition therapy, and plan for discharge tomorrow with followup at her oncologist the day after. /[id number] TONG/LEX
[2020-03-11] MEDS: Enoxaparin 30 MG/0.3 ML Syringe SUBCUT SCH (12:38)
[2020-03-11] MEDS: Acetaminophen 325 MG Tab PO PRN (12:38)
[2020-03-11] MEDS: Zolpidem 5 MG Tab PO SCH (21:01)
[2020-03-12] MEDS: Pantoprazole 40 MG Tab.CR PO SCH ×2 (06:41→16:31)
[2020-03-12] MEDS: amLODIPine 5 MG Tab PO SCH (08:23)
[2020-03-12] MEDS: Aspirin 81 MG Tab.EC PO SCH (08:27)
[2020-03-12] MEDS: Cholecalciferol (Vitamin D3) 25 MCG Tab PO SCH (08:27)
[2020-03-12] MEDS ORDERED: Potassium Chloride 10 MEQ Tab.ER PO SCH (09:00)
--- NOTE | 2020-03-12 09:52 | CR ---
INDICATION: Rales. CHEST ONE VIEW: An AP upright view of the chest was obtained 03/12/20 in a wheelchair and compared with 03/07/20 and 08/23/16. The heart does not appear grossly enlarged. The aorta is tortuous with calcification in the arch and descending portion. Upper lung field pulmonary vasculature is slightly prominent raising question of pulmonary vascular congestion of mild degree. This could be on the basis of fluid overload, acute myocardial event, or other etiologies. Interstitial prominence is mild and may represent pulmonary fibrosis or possibly interstitial lung edema and should be correlated clinically as well. No consolidating pneumonia or effusion was seen. MTDD
[2020-03-12] MEDS: Potassium Chloride 20 MEQ Tab.ER PO SCH ×2 (09:53→20:05)
[2020-03-12] MEDS: Enoxaparin 30 MG/0.3 ML Syringe SUBCUT SCH (11:26)
[2020-03-12] MEDS: traMADol 50 MG Tab PO PRN ×2 (15:26→21:01)
[2020-03-12] MEDS ORDERED: Mirtazapine 15 MG Tab PO SCH (21:00)
[2020-03-13] MEDS: Pantoprazole 40 MG Tab.CR PO SCH (06:32)
[2020-03-13] MEDS ORDERED: Acetaminophen/HYDROcodone 325-5 MG Tab PO PRN (08:11)
[2020-03-13] MEDS: Potassium Chloride 20 MEQ Tab.ER PO SCH (08:30)
[2020-03-13] MEDS: amLODIPine 5 MG Tab PO SCH (08:30)
[2020-03-13] MEDS: Aspirin 81 MG Tab.EC PO SCH (08:30)
[2020-03-13] MEDS: Cholecalciferol (Vitamin D3) 25 MCG Tab PO SCH (08:31)
[2020-03-13 08:32] VITALS: BP 135/59
--- NOTE | 2020-03-13 09:08 | PN ---
DATE SEEN: 03/12/2020 HISTORY: Sandrita is an 85-year-old woman who was admitted because of weakness, falls, and new diagnosis of left thigh sarcoma. She has been treated initially with IV fluid, DVT prophylaxis, correction of electrolyte imbalance, and physical therapy. She has had a slow return to strength. Her appetite remains quite poor and she has only been able to be up walking a few steps in her room with assistance. Discharge was anticipated within the next day or so and we will plan for tomorrow to swing bed to continue therapy in anticipation of her gaining enough strength to go to her oncology appointment and have her PET scan as planned. PHYSICAL EXAMINATION: GENERAL: She is awake, but she appeared tired and fatigued. She denies current pain. VITAL SIGNS: Blood pressure 96/50, pulse 78, temperature 98.1, and respirations 19. LUNGS: Clear in the upper lung kilpatrick. She has dry rales at the bases. HEART: Regular without murmur or gallop. ABDOMEN: Soft and nontender. EXTREMITIES: Showed no edema. ASSESSMENT: 1. Sarcoma, left thigh with weakness and cachexia with now mild hypotension. 2. Chronic insomnia. 3. Anemia. Hemoglobin 8.1. 4. Hypokalemia. Potassium 2.8. PLAN: We will increase her potassium replacement. Check stool for Hemoccult and plan for discharge to swing bed tomorrow if able and blood pressure stabilizes. /[id number] TONG/LEX
--- NOTE | 2020-03-13 09:40 | DISCH ---
DISCHARGE DATE: 03/13/2020 PRIMARY FINAL DIAGNOSES: 1. Weakness. 2. Falls. 3. Diarrhea. 4. Hypokalemia. 5. Recent diagnosis of left thigh sarcoma. 6. Urinary tract infection. OPERATIONS: None. COMPLICATIONS: The patient remained extremely weak with poor appetite, immobility, and was unable to keep her scheduled Oncology and PET scan appointments. HISTORY: Sandrita is an 85-year-old woman from [place], who was recently diagnosed with sarcoma. She had been scheduled to see Oncology and have a PET scan but became too weak to get to her appointments, and thus was brought to the hospital, where she was admitted to acute care on 03/07/2020. On admission, she was found to be weak and dehydrated. She had a white count of 19,000, hemoglobin 10.1, and potassium of 2.3, with a BUN of 36, creatinine 1.1. She was treated with IV fluid. Her potassium was replaced, and therapy was administered. She had very poor oral intake and urinalysis showed urinary tract infection. She was treated with antibiotics as well. She had very slow return of strength and by 03/13/2020, today, she has not recuperated enough to be discharged to home. She is transferred to swing bed care at [facility], where we will continue further recuperation and hopefully get her strong enough so she can attend her rescheduled appointments with Oncology and PET scanning. MEDICATIONS ON DISCHARGE: 1. Potassium chloride 20 mEq b.i.d. 2. Artificial Tears p.r.n. 3. Actos 15 mg daily. 4. Protonix 40 mg daily. 5. Remeron 15 mg at bedtime. 6. Lovenox 30 mg subcu daily. 7. [place] 5/325 one every 4 hours p.r.n. pain. 8. Tylenol p.r.n. 9. Vitamin D 1000 units daily. 10.Aspirin 81 mg. PLAN: We will continue to provide palliative care measures for Ms. Burleson as well. /[id number] TONG/SAMANTHAL
[2020-03-13 11:25] VITALS: PULSE 83
[2020-03-14] MEDS ORDERED: Pantoprazole 40 MG Tab.CR PO SCH (06:00)
== END 2020-03-13 10:00 | disposition swing bed (61) | DRG 683 ==
LOC: EDBD → MERGE 07:07 → FB.ED 07:07 → FB.MS 10:08 → OBSVTOIN 03-08 08:56
PROVIDERS: ADMIT Emergency Medicine; ATTEND Family Medicine
DX: N17.9 Acute kidney failure, unspecified (principal); N39.0 Urinary tract infection, site not specified; C76.52 Malignant neoplasm of left lower limb; E87.6 Hypokalemia; W19.XXXA Unspecified fall, initial encounter; C49.22 Malignant neoplasm of connective and soft tissue of left lower limb, including hip; Z51.5 Encounter for palliative care; E86.0 Dehydration; H54.7 Unspecified visual loss; Z86.711 Personal history of pulmonary embolism; K21.9 Gastro-esophageal reflux disease without esophagitis; E78.00 Pure hypercholesterolemia, unspecified; I12.9 Hypertensive chronic kidney disease with stage 1 through stage 4 chronic kidney disease, or unspecified chronic kidney disease; E11.22 Type 2 diabetes mellitus with diabetic chronic kidney disease; N18.3 Chronic kidney disease, stage 3 (moderate); Z86.010 Personal history of colon polyps; G89.29 Other chronic pain; M19.90 Unspecified osteoarthritis, unspecified site; M54.9 Dorsalgia, unspecified; F41.9 Anxiety disorder, unspecified; E11.9 Type 2 diabetes mellitus without complications; Z98.890 Other specified postprocedural states; D64.9 Anemia, unspecified; D47.3 Essential (hemorrhagic) thrombocythemia; Z79.899 Other long term (current) drug therapy; Z20.828 Contact with and (suspected) exposure to other viral communicable diseases; Z79.82 Long term (current) use of aspirin; Z88.5 Allergy status to narcotic agent; Z88.8 Allergy status to other drugs, medicaments and biological substances; Z90.89 Acquired absence of other organs; Z98.49 Cataract extraction status, unspecified eye; Z90.710 Acquired absence of both cervix and uterus; I10 Essential (primary) hypertension; G47.00 Insomnia, unspecified
CPT/HCPCS: 36415 ×2; 71045; 80048; 80053; 81001; 82962; 83605; 84484; 85025 ×2; 87040 ×2; 87086; 87088; 87186; 93005; 96361 ×2; 96365; 96366; 99285; A9270 ×9; J0696; J1650; J3480; J7030 ×2; 84132; 97110-GP; 97116-GP; 97161-GP; 97165-GO; 97530-GO; 97535-GO

== ENCOUNTER 2020-03-13 10:00 | Inpatient (IN) | payer MEDICARE, OTHER ==
--- NOTE | 2020-03-13 09:23 | HP ---
ADMISSION DATE: 03/13/2020 CHIEF COMPLAINT: Admission to swing bed after acute care stay for extreme weakness, UTI, and hypokalemia. HISTORY OF PRESENT ILLNESS: Sandrita is an 85-year-old, resident of [place], [place] who was recently diagnosed with a left thigh sarcoma. She had been enrolled with appointments for Oncology and PET scanning; however, prior to keeping these appointments she developed extreme weakness, falls at home. She was brought to the emergency room and admitted to acute care on 03/07. She was found to have severe hypokalemia, urinary tract infection, marked nutritional deficits, weakness and immobility. She was treated with acute care for these problems and is now admitted to swing bed for further recuperation. PAST MEDICAL HISTORY: Includes hypertension, hyperlipidemia, chronic renal insufficiency, osteoarthritis, type 2 diabetes, anxiety, depression, GERD. MEDICATIONS: 1. Potassium chloride 20 mEq b.i.d. 2. Protonix 40 mg daily. 3. Hydrocodone 5/325 one every 4 hours p.r.n. pain. 4. Actos 15 mg daily. 5. Aspirin 81 mg daily. ALLERGIES: Lisinopril listed, Demerol listed, metformin listed causing irritability, and phenytoin listed with reactions not specified. HABITS: Nonsmoker and nondrinker. FAMILY AND SOCIAL HISTORY: The patient lives by herself in [place]. She has a son on the [facility], who is now staying in [place], helping to take care of her or taking care of her local needs. REVIEW OF SYSTEMS: Positive for generalized weakness and left leg pain. Negative for recent fever, chills, headaches, cough, dyspnea, chest pain, abdominal pain. She does have some chronic low-grade swelling of her lower extremities. PHYSICAL EXAMINATION: GENERAL: She is alert, but weak and pale. She was eating breakfast during my visit. VITAL SIGNS: Blood pressure 125/71, pulse 75 and regular, respirations 16, O2 saturation 95% on room air, temperature 97.4. Weight on admission to acute care 133 pounds. SKIN: Anicteric. Warm, dry, without rash. HEENT: Shows mouth to be dry. LUNGS: Clear in the upper lung kilpatrick. She has rhonchi at the bases. No focal consolidation. HEART: Regular without murmur or gallop. ABDOMEN: Normal bowel sounds. Soft and nontender. EXTREMITIES: Nonpitting edema at the ankle, but puffiness up above the ankles. She has a tender mass in her left lateral thigh consistent with sarcoma. LABORATORY DATA: Glucose this morning 174. Electrolytes this morning pending. Potassium yesterday 2.8. Hemoglobin yesterday 8.1. ASSESSMENT: 1. Left thigh sarcoma. 2. Severe hypokalemia. 3. Normocytic anemia. 4. Type 2 diabetes. 5. Hypertension. 6. Generalized debility and weakness. PLAN: We will plan for continued therapy, nutrition, pain management, and provide palliative care measures for Ms. Burleson. Her plans are to return to her home if able and to follow up with Oncology in [place]. /[id number] TONG/LXE SCHUSTER
[2020-03-13] MEDS ORDERED: Polyvinyl Alcohol 1.4%/Povidone 0.6% Ophth Soln 0.4 ML Box of 30 EYEBOTH PRN (10:14)
[2020-03-13] MEDS ORDERED: Acetaminophen 325 MG Tab PO PRN (10:14)
[2020-03-13] MEDS ORDERED: Carboxymethylcellulose 0.5%/Glycerin 0.9% Ophth Soln 15 ML Bottle EYEBOTH PRN (10:14)
[2020-03-13] MEDS: Enoxaparin 30 MG/0.3 ML Syringe SUBCUT SCH (13:01)
[2020-03-13] MEDS: Acetaminophen/HYDROcodone 325-5 MG Tab PO PRN ×2 (13:01→19:49)
[2020-03-13] MEDS: Mirtazapine 15 MG Tab PO SCH (20:59)
[2020-03-13] MEDS: Potassium Chloride 20 MEQ Tab.ER PO SCH (20:59)
[2020-03-14] MEDS: Acetaminophen/HYDROcodone 325-5 MG Tab PO PRN ×5 (00:01→22:11)
[2020-03-14] MEDS: Pantoprazole 40 MG Tab.CR PO SCH (06:20)
[2020-03-14] MEDS: Aspirin 81 MG Tab.EC PO SCH (08:19)
[2020-03-14] MEDS: Cholecalciferol (Vitamin D3) 25 MCG Tab PO SCH (08:20)
[2020-03-14] MEDS: Potassium Chloride 20 MEQ Tab.ER PO SCH (08:20)
--- NOTE | 2020-03-14 11:35 | PN ---
DATE SEEN: 03/14/2020 HISTORY: Sandrita is an 85-year-old woman who was recently diagnosed with left thigh sarcoma. She was scheduled to see Oncology and a PET scan in [place]; however, was too weak for it. She was admitted to the hospital here and then discharged to swing bed where she remains. She does complain of pain in her thigh that reached 9 this morning. She also states she slept poorly last night with some stomach upset. She has been hypokalemic and labs will be rechecked tomorrow morning. PHYSICAL EXAMINATION: GENERAL: She is alert and a good historian. VITAL SIGNS: Blood pressure 135/59, O2 saturation 93% on room air, pulse 83. She is afebrile. Weight 147 pounds. LUNGS: Clear. Respirations easy. HEART: Regular. ABDOMEN: Soft. EXTREMITIES: Thigh shows a tender swelling in her proximal to mid quad muscle on the left. ASSESSMENT: 1. Sarcoma, left thigh. 2. Generalized weakness with hypokalemia. 3. Poor nutrition. 4. Type 2 diabetes. 5. Poor sleep. PLAN: We will discontinue her evening potassium because of the mild GI upset. Continue her other medications. If she is not receiving adequate pain control from her hydrocodone, we will consider the addition of the Duragesic patch. We will continue to provide palliative care measures and strengthening while in swing bed here with a goal of getting her strong enough to get to her oncology appointment and then hopefully to be discharged to home again. /[id number] TONG/LEX
[2020-03-14] MEDS: Enoxaparin 30 MG/0.3 ML Syringe SUBCUT SCH (12:43)
[2020-03-14] MEDS: Mirtazapine 15 MG Tab PO SCH (20:39)
[2020-03-15] MEDS ORDERED: Aluminum Hydroxide/Magnesium Hydroxide Susp 30 ML Cup PO PRN (00:25)
[2020-03-15] MEDS: Acetaminophen/HYDROcodone 325-5 MG Tab PO PRN ×3 (03:38→20:05)
[2020-03-15] MEDS: Pantoprazole 40 MG Tab.CR PO SCH (06:57)
[2020-03-15] MEDS: Aspirin 81 MG Tab.EC PO SCH (08:04)
[2020-03-15] MEDS: Potassium Chloride 20 MEQ Tab.ER PO SCH (08:05)
[2020-03-15] MEDS: Cholecalciferol (Vitamin D3) 25 MCG Tab PO SCH (08:05)
[2020-03-15] MEDS: Famotidine 20 MG Tab PO SCH ×2 (11:14→22:11)
[2020-03-15] MEDS: Enoxaparin 30 MG/0.3 ML Syringe SUBCUT SCH (12:01)
[2020-03-15] MEDS: Ferrous Sulfate 325 MG Tab PO SCH (17:45)
[2020-03-15] MEDS: Mirtazapine 15 MG Tab PO SCH (22:11)
[2020-03-16] MEDS: Acetaminophen/HYDROcodone 325-5 MG Tab PO PRN ×2 (00:06→10:43)
[2020-03-16] MEDS: Pantoprazole 40 MG Tab.CR PO SCH (06:42)
[2020-03-16 08:12] LABS: IRON BIND.CAP.(TIBC) 160 ug/dL (250-450); IRON SATURATION 11 % (15-55); IRON, SERUM 17 ug/dL (27-139); UIBC 143 ug/dL (118-369)
[2020-03-16] MEDS: Cholecalciferol (Vitamin D3) 25 MCG Tab PO SCH (08:31)
[2020-03-16] MEDS: Aspirin 81 MG Tab.EC PO SCH (08:31)
[2020-03-16] MEDS: Ferrous Sulfate 325 MG Tab PO SCH ×2 (08:31→18:46)
[2020-03-16] MEDS: Potassium Chloride 20 MEQ Tab.ER PO SCH (08:31)
[2020-03-16] MEDS: Famotidine 20 MG Tab PO SCH (08:31)
[2020-03-16] MEDS ORDERED: fentaNYL 12 MCG/HR Transdermal Patch TRDERM SCH (11:45)
[2020-03-16] MEDS: Enoxaparin 30 MG/0.3 ML Syringe SUBCUT SCH (13:09)
[2020-03-16] MEDS ORDERED: fentaNYL 12 MCG/HR Transdermal Patch ONE (13:14)
--- NOTE | 2020-03-16 18:32 | PN ---
DATE SEEN: 03/16/2020 SUBJECTIVE: Sandrita Burleson is an 85-year-old female. Swing bed care after acute care for extreme weakness, UTI, and hypokalemia. She was diagnosed with left thigh sarcoma. Had appointment with Oncology and diagnostic studies, unable to complete because of marked weakness. Of great concern, elevated liver enzymes, reduced albumin of 1.1, hemoglobin 7.4 with low iron stores. Iron has been continued. Medications on board include hydrocodone 1 q.4 hours and strong consideration for Duragesic patch. We will consider that as an alternative. Duragesic patch will be started. Appetite is markedly reduced. Intake is inadequate. Spoke to the opportunity for consideration for feeding tube. Taken under advisement. OBJECTIVE: VITAL SIGNS: 36.7, 87, 119/66, respirations 18, 93%. GENERAL: Soft spoken, weak, appears unsettled. NECK: Benign. Thyroid small. CHEST: Clear in all lung kilpatrick. HEART: No ectopy or murmur. ABDOMEN: Benign. ASSESSMENT: Sarcoma, left thigh. PLAN: Medications, care, and treatment appropriate. We will add a Duragesic patch, proceed accordingly. /[id number] [id number] VALERIE/LEX
[2020-03-16] MEDS: Mirtazapine 15 MG Tab PO SCH (20:18)
[2020-03-17] MEDS: Pantoprazole 40 MG Tab.CR PO SCH (05:09)
[2020-03-17] MEDS: Ondansetron 4 MG Tab.DIS PO PRN ×2 (08:23→12:14)
[2020-03-17] MEDS: Famotidine 20 MG Tab PO SCH (12:14)
[2020-03-17] MEDS: Enoxaparin 30 MG/0.3 ML Syringe SUBCUT SCH (12:15)
[2020-03-17] MEDS: Cholecalciferol (Vitamin D3) 25 MCG Tab PO SCH (13:27)
[2020-03-17] MEDS: Ferrous Sulfate 325 MG Tab PO SCH ×2 (13:27→18:20)
[2020-03-17] MEDS: Aspirin 81 MG Tab.EC PO SCH (13:27)
[2020-03-17] MEDS: Potassium Chloride 20 MEQ Tab.ER PO SCH (13:27)
[2020-03-17] MEDS: Mirtazapine 15 MG Tab PO SCH (21:32)
[2020-03-18] MEDS: Pantoprazole 40 MG Tab.CR PO SCH (05:18)
[2020-03-18] MEDS: Aspirin 81 MG Tab.EC PO SCH (08:03)
[2020-03-18] MEDS: Famotidine 20 MG Tab PO SCH (08:03)
[2020-03-18] MEDS: Cholecalciferol (Vitamin D3) 25 MCG Tab PO SCH (08:04)
[2020-03-18] MEDS: Potassium Chloride 20 MEQ Tab.ER PO SCH (08:04)
[2020-03-18] MEDS: Ferrous Sulfate 325 MG Tab PO SCH ×2 (08:04→17:49)
[2020-03-18] MEDS: Acetaminophen/HYDROcodone 325-5 MG Tab PO PRN ×4 (08:46→21:47)
[2020-03-18] MEDS: Enoxaparin 30 MG/0.3 ML Syringe SUBCUT SCH (12:34)
--- NOTE | 2020-03-18 12:58 | PN ---
DATE SEEN: 03/18/2020 SUBJECTIVE: Sandrita Burleson is an -ujyb-zws female in swing bed. Diagnosis of left thigh sarcoma, biopsy-proven. Intervention care, PET scan and treatment have been delayed due to weakness. Consequence, hemoglobin markedly low 7.4, will be rechecked today. Stop the Duragesic patch due to sedation, drowsiness, and blurred vision. OBJECTIVE: VITAL SIGNS: 36.4, pulse 88, respirations 18, 94%, 119/66. GENERAL: Appears comfortable. CHEST: Clear. HEART: Regular. ABDOMEN: Benign. ASSESSMENT: Left thigh sarcoma. PLAN: Pain appears to be controlled with oral analgesics. Complementary care and well being. We will recheck hemoglobin. Recheck electrolytes. /[id number] VALERIE/LEX
--- NOTE | 2020-03-18 12:58 | PN ---
DATE SEEN: 03/17/2020 SUBJECTIVE: Sandrita Burleson is an 85-year-old female admitted for control of pain. Appears to be comfortable. Analgesics on board. Duragesic patch started yesterday with good clinical improvement. She voices no other issues. LABORATORY DATA: Laboratory studies upon admission revealed low potassium of 3.3, hemoglobin 7.4. They will be rechecked. PHYSICAL EXAMINATION: VITAL SIGNS: Stable. 36.6, 124/61, 18, and 94%. GENERAL: Appears comfortable. Soft spoken. NECK: Benign. Thyroid small. CHEST: Clear in all lung kilpatrick. HEART: Distant heart sounds. Occasional ectopy. Soft murmur. ABDOMEN: Benign. EXTREMITIES: Left thigh sarcoma. PLAN: Pain medications on board. Appreciate care and intervention. /[id number] VALERIE/LEX
[2020-03-18] MEDS: Mirtazapine 15 MG Tab PO SCH (21:23)
[2020-03-19] MEDS: Pantoprazole 40 MG Tab.CR PO SCH (05:04)
[2020-03-19] MEDS: Ferrous Sulfate 325 MG Tab PO SCH ×2 (10:02→18:20)
[2020-03-19] MEDS: Potassium Chloride 20 MEQ Tab.ER PO SCH (10:02)
[2020-03-19] MEDS: Aspirin 81 MG Tab.EC PO SCH (10:02)
[2020-03-19] MEDS: Famotidine 20 MG Tab PO SCH (10:03)
[2020-03-19] MEDS: Cholecalciferol (Vitamin D3) 25 MCG Tab PO SCH (10:03)
[2020-03-19] MEDS: Acetaminophen/HYDROcodone 325-5 MG Tab PO PRN (10:05)
--- NOTE | 2020-03-19 12:25 | PN ---
DATE SEEN: 03/19/2020 SUBJECTIVE: Sandrita Burleson is an 85-year-old female in swing bed for rehab purposes. Diagnosis of a thigh sarcoma. Pain control to be an issue. LABORATORY STUDIES: White count 15,900, hemoglobin 7.3, hematocrit 22.7, platelets . OBJECTIVE: VITAL SIGNS: 36.2, 120/65, 18, and 94%. GENERAL: Soft spoken with sabas in appearance. NECK: Benign. Thyroid small. CHEST: Clear in all lung kilpatrick. HEART: Occasional ectopy, soft murmur. ASSESSMENT: Pain control primary issue. PLAN: Analgesics given routinely. /[id number] VALERIE/LEX
[2020-03-19] MEDS: Enoxaparin 30 MG/0.3 ML Syringe SUBCUT SCH (12:29)
[2020-03-19] MEDS: Acetaminophen/HYDROcodone 325-10 MG Tab PO SCH ×3 (12:29→20:03)
[2020-03-19] MEDS: Mirtazapine 15 MG Tab PO SCH (20:00)
[2020-03-20] MEDS: Pantoprazole 40 MG Tab.CR PO SCH (07:06)
[2020-03-20] MEDS: Ferrous Sulfate 325 MG Tab PO SCH ×2 (08:30→17:44)
[2020-03-20] MEDS: Famotidine 20 MG Tab PO SCH (09:31)
[2020-03-20] MEDS: Aspirin 81 MG Tab.EC PO SCH (09:31)
[2020-03-20] MEDS: Potassium Chloride 20 MEQ Tab.ER PO SCH (09:31)
[2020-03-20] MEDS: Cholecalciferol (Vitamin D3) 25 MCG Tab PO SCH (09:32)
[2020-03-20] MEDS: Acetaminophen/HYDROcodone 325-10 MG Tab PO SCH ×4 (09:36→20:32)
--- NOTE | 2020-03-20 12:58 | PCM.CONS ---
H&P History of Present Illness - General Date of Service: 03/20/20 Admit Problem/Dx: Admission Diagnosis/Problem Admission Diagnosis/Problem Weakness Source of Information: Patient, Old Records History Limitations: Reports: No Limitations - History of Present Illness Initial Comments - Free Text/Narative: Has been diagnosed with soft tissue sarcoma of leg and had been loosing weight and has become severely malnourished with Albumin 1.1. Her physician and son agree with her to get a PEG to for nourishment. Onset of Symptoms: Reports: Gradual Left Thigh Pain Score (Numeric/FACES): 4 abdominal Pain Score (Numeric/FACES): 8 - Related Data Allergies/Adverse Reactions: Allergies Allergy/AdvReac Type Severity Reaction Status Date / Time lisinopril Allergy Cannot Verified 03/07/20 09:01 Remember meperidine Allergy Cannot Verified 03/07/20 09:01 Remember metformin Allergy Irritabilit Verified 03/07/20 09:01 y phenytoin Allergy Cannot Verified 03/07/20 09:01 Remember Home Medications: Home Meds Aspirin [Adult Low Dose Aspirin EC] 81 mg PO DAILY 08/06/16 [History] Cholecalciferol (Vitamin D3) [Vitamin D3] 25 mcg PO DAILY 03/07/20 [History] Polyvinyl Alcohol/Povidone [Refresh] 1 drop EYEBOTH ASDIRECTED PRN 03/07/20 [History] Acetaminophen [Tylenol] 650 mg PO Q4H PRN tablet 03/12/20 [Rx] Carboxymethylcellulos/Glycerin [Refresh Optive] 0 ml EYEBOTH ASDIRECTED PRN bottle 03/12/20 [Rx] Enoxaparin [Lovenox] 30 mg SUBCUT Q24H syringe 03/12/20 [Rx] Pantoprazole [ProTONIX] 40 mg PO DAILY tab.cr 03/12/20 [Rx] Pioglitazone [Actos] 15 mg PO DAILY tablet 03/12/20 [Rx] Potassium Chloride [Klor-Con 10] 20 meq PO BID tab.er 03/12/20 [Rx] Acetaminophen/HYDROcodone [[place] 325-5 MG] 1 tab PO Q4H PRN tablet 03/13/20 [Rx] Mirtazapine [Remeron] 15 mg PO BEDTIME tablet 03/13/20 [Rx] Pantoprazole [ProTONIX] 40 mg PO DAILY tab.cr 03/13/20 [Rx] Potassium Chloride [Klor-Con M20] 20 meq PO BID tab.er 03/13/20 [Rx] Past Medical History HEENT History: Reports: None Other HEENT History: wears glasses Cardiovascular History: Reports: High Cholesterol, Hypertension, SOB on Exertion Respiratory History: Reports: PE, SOB Gastrointestinal History: Reports: Bowel Obstruction, Colon Polyp, GERD Genitourinary History: Reports: Renal Disease, Other (See Below) 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 , Musculoskeletal History: Reports: Arthritis, Back Pain, Chronic Neurological History: Reports: None Psychiatric History: Reports: Anxiety Endocrine/Metabolic History: Reports: Diabetes, Type II Other Oncologic History: soft tissue sarcoma - Infectious Disease History Infectious Disease History: Reports: Measles, Mumps Other Infectious Disease History: covid neg 2 weeks ago - Past Surgical History HEENT Surgical History: Reports: Adenoidectomy, Cataract Surgery, Tonsillectomy Cardiovascular Surgical History: Reports: None Respiratory Surgical History: Reports: None GI Surgical History: Reports: Appendectomy, Colonoscopy Female Surgical History: Reports: Hysterectomy, Oophorectomy Endocrine Surgical History: Reports: None Neurological Surgical History: Reports: None Other Musculoskeletal Surgeries/Procedures:: foot surgery- bone removed ?spur Other Oncologic Surgeries/Procedures: biopsy done on lump on leg Social & Family History - Family History Family Medical History: Noncontributory - Tobacco Use Smoking Status *Q: Never Smoker Second Hand Smoke Exposure: No - Caffeine Use Caffeine Use: Reports: Soda - Recreational Drug Use Recreational Drug Use: No H&P Review of Systems - Review of Systems: Review Of Systems: See Below General: Reports: No Symptoms Pulmonary: Reports: No Symptoms Cardiovascular: Reports: No Symptoms Gastrointestinal: Reports: Anorexia. Denies: Abdominal Pain Hematologic/Lymphatic: Reports: No Symptoms Exam - Exam Exam: See Below - Vital Signs Vital Signs: Last Vital Signs Temp 98.5 F 03/20/20 08:00 Pulse 93 03/20/20 08:00 Resp 18 03/20/20 08:00 BP 104/54 L 03/20/20 08:00 Pulse Ox 94 L 03/20/20 08:00 Weight: 65.544 kg - Exam General: Alert, Oriented Lungs: Clear to Auscultation, Normal Respiratory Effort GI/Abdominal Exam: Soft, Non-Tender, Other (lower midline scar from previous surgery 3 yrs ago ) - Patient Data Lab Results Last 24 hrs: Laboratory Results - last 24 hr 03/20/20 Range/Units 09:57 Sodium 135 (135-145) mmol/L Potassium 4.8 (3.5-5.3) mmol/L Chloride 102 D (100-110) mmol/L Carbon Dioxide 21 (21-32) mmol/L BUN 22 H D (7-18) mg/dL Creatinine 1.3 H (0.55-1.02) mg/dL Est Cr Clr Drug Dosing 22.73 mL/min Estimated GFR (MDRD) 39 L (>60) BUN/Creatinine Ratio 16.9 (9-20) Glucose 239 H D (80-116) mg/dL Calcium 8.6 (8.6-10.2) mg/dL Total Bilirubin 0.3 (0.1-1.3) mg/dL AST 64 H D (5-25) IU/L ALT 38 H D (12-36) U/L Alkaline Phosphatase 317 H (56-112) IU/L Total Protein 6.2 (6.0-8.0) g/dL Albumin 1.2 L* (3.2-4.6) g/dL Globulin 5.0 g/dL Albumin/Globulin Ratio 0.2 Result Diagrams: 03/18/20 10:50 03/20/20 09:57 Sepsis Event Note - Evaluation Sepsis Screening Result: No Definite Risk - Focused Exam Vital Signs: Vital Signs Temp Pulse Resp BP Pulse Ox 03/20/20 08:00 98.5 F 93 18 104/54 L 94 L *Q Meaningful Use (ADM) - VTE *Q VTE Mechanical Contraindications *Q: At Risk for Falls Consult PN Assessment/Plan Procedures: Procedures ASSAY OF AMYLASE (08/06/16) ASSAY OF CREATININE (02/17/20) ASSAY OF LACTIC ACID (03/08/20) ASSAY OF SERUM POTASSIUM (03/08/20) ASSAY OF TROPONIN QUANT (03/08/20) ASSAY THYROID STIM HORMONE (08/06/16) BLOOD CULTURE FOR BACTERIA (03/08/20) CHEST X-RAY 1 VIEW FRONTAL (08/23/16) CHEST X-RAY 2VW FRONTAL&LATL (08/06/16) COMPLETE CBC W/AUTO DIFF WBC (03/08/20) COMPREHEN METABOLIC PANEL (03/08/20) CT ABD & PELV W/CONTRAST (02/17/20) CT ANGIOGRAPHY CHEST (08/23/16) CT THORAX W/DYE (02/17/20) DXA BONE DENSITY AXIAL (05/23/14) ELECTROCARDIOGRAM TRACING (03/08/20) EMERGENCY DEPT VISIT (03/08/20) EVALUATE PT USE OF INHALER (08/06/16) FIBRIN DEGRADATION QUANT (08/23/16) GAIT TRAINING THERAPY (03/08/20) GLUCOSE BLOOD TEST (03/08/20) HYDRATE IV INFUSION ADD-ON (03/08/20) INSERT TEMP BLADDER CATH (08/06/16) METABOLIC PANEL TOTAL CA (03/08/20) MICROBE SUSCEPTIBLE JOSE (03/08/20) MRI LUMBAR SPINE W/O DYE (05/31/18) MRI LWR EXTREMITY W/O&W/DYE (02/15/20) NASAL/OROGASTRIC W/TUBE PLMT (08/06/16) OT EVAL LOW COMPLEX 30 MIN (03/08/20) PROTHROMBIN TIME (08/06/16) PT EVAL LOW COMPLEX 20 MIN (03/08/20) ROUTINE VENIPUNCTURE (03/08/20) SELF CARE MNGMENT TRAINING (03/08/20) THER/PROPH/DIAG IV INF ADDON (03/08/20) THER/PROPH/DIAG IV INF INIT (03/08/20) THERAPEUTIC ACTIVITIES (03/08/20) THERAPEUTIC EXERCISES (03/08/20) TISSUE EXAM BY PATHOLOGIST (08/06/16) TTE W/DOPPLER COMPLETE (07/26/19) TX/PRO/DX INJ NEW DRUG ADDON (08/06/16) TX/PROPH/DG ADDL SEQ IV INF (08/23/16) URINALYSIS AUTO W/SCOPE (03/08/20) URINE BACTERIA CULTURE (03/08/20) URINE CULTURE/COLONY COUNT (03/08/20) VITAL CAPACITY TEST (08/06/16) X-RAY EXAM CHEST 1 VIEW (03/08/20) (1) Malnutrition SNOMED Code(s): 67021774 Code(s): E46 - UNSPECIFIED PROTEIN-CALORIE MALNUTRITION Current Visit: Yes Qualifiers: Malnutrition type: protein-calorie malnutrition Protein-calorie malnutrition severity: severe Qualified Code(s): E43 - Unspecified severe prot ein-calorie malnutrition Problem List Initiated/Reviewed/Updated: Yes My Orders Last 24 Hours: Will plan on PEG placement in am. Discussed procedure, risks and complications. Consent obtained.
[2020-03-20] MEDS: Enoxaparin 30 MG/0.3 ML Syringe SUBCUT SCH (13:29)
--- NOTE | 2020-03-20 15:36 | PN ---
DATE SEEN: 03/20/2020 SUBJECTIVE: Sandrita is an 85-year-old seen today for review. Complicated left thigh sarcoma. Spoke with her son in [place], [place]. We will proceed with feeding tube. I spoke with Dr. Nunn. PLAN: For interventional consult today, planned for tomorrow. Otherwise, doing well. Pain appears to be controlled. /[id number] VALERIE/LEX
[2020-03-20] MEDS: Mirtazapine 15 MG Tab PO SCH (20:33)
[2020-03-21] MEDS: Pantoprazole 40 MG Tab.CR PO SCH (05:28)
[2020-03-21] MEDS ORDERED: Sodium Chloride 0.9% 10 ML Syringe FLUSH PRN (10:30)
[2020-03-21] MEDS ORDERED: Lactated Ringers 1,000 ML IV SCH ×2 (10:30→18:00)
--- NOTE | 2020-03-21 12:22 | PN ---
DATE SEEN: 03/21/2020 SUBJECTIVE: Sandrita Burleson is an 85-year-old female seen today for review. Has a complicated left thigh sarcoma. Having a feeding tube placed today. She has a small ulcer on the lateral side of her right tongue without complicating issue. Otherwise been clinically well. LABORATORY STUDIES: Hemoglobin 7.4 on admission on 03/15/2020 and 7.3 on 03/18/2020. Potassium went from 3.3 to 4 to 4.8 on 03/20/2020. Glucose variable. GFR 39. PHYSICAL EXAMINATION: GENERAL: Soft spoken, little bit withdrawn. HEENT: Little lateral tongue erosion. No other intraoral pathology. NECK: No reactive lymphadenopathy. CHEST: Clear in all lung kilpatrick. HEART: Soft murmur. Ectopy noted. ASSESSMENT: Sarcoma, left thigh. PLAN: Feeding tube care and intervention to follow. We will consider blood transfusion. /[id number] [id number] VALERIE/LEX
--- NOTE | 2020-03-21 12:39 | PCM.OPNOTE ---
- General Post-Op/Procedure Note Date of Surgery/Procedure: 03/21/20 Operative Procedure(s): PEG placement Pre Op Diagnosis: Malnutrition Post-Op Diagnosis: Same Anesthesia Technique: MAC Primary Surgeon: Rick Nunn Anesthesia Provider: Jessica Zimmerman Complications: None Condition: Good
[2020-03-21] MEDS ORDERED: Lidocaine 2% 5 ML SDV IV ONE (12:40)
[2020-03-21] MEDS ORDERED: Propofol 200 MG/20 ML SDV IV ONE (12:40)
[2020-03-21] MEDS: Acetaminophen/HYDROcodone 325-10 MG Tab PO SCH ×4 (13:22→20:37)
[2020-03-21] MEDS: Enoxaparin 30 MG/0.3 ML Syringe SUBCUT SCH (17:51)
[2020-03-21] MEDS: Aspirin 81 MG Tab.EC PO SCH (17:52)
[2020-03-21] MEDS: Famotidine 20 MG Tab PO SCH (17:52)
[2020-03-21] MEDS: Potassium Chloride 20 MEQ Tab.ER PO SCH (17:52)
[2020-03-21] MEDS: Ferrous Sulfate 325 MG Tab PO SCH ×2 (17:52→17:53)
[2020-03-21] MEDS: Cholecalciferol (Vitamin D3) 25 MCG Tab PO SCH (17:53)
[2020-03-21] MEDS ORDERED: HYDROmorphone 2 MG/ML SDV IVPUSH ONE (18:03)
[2020-03-21] MEDS: Mirtazapine 15 MG Tab PO SCH (20:36)
[2020-03-22] MEDS: Pantoprazole 40 MG Tab.CR PO SCH (06:00)
--- NOTE | 2020-03-22 08:22 | OR ---
DATE OF OPERATION: 03/21/2020 SURGEON: Rick Nunn MD PREOPERATIVE DIAGNOSIS: Malnutrition. POSTOPERATIVE DIAGNOSIS: Malnutrition. PROCEDURE: Placement of percutaneous endoscopic gastrostomy tube, 20 [place]. ANESTHESIA: MAC with local. DESCRIPTION OF PROCEDURE: The patient was brought to the endoscopy room, where she was placed in the supine position and IV sedation administered. Oral bite block was placed and the upper endoscope advanced into the esophagus under direct vision without difficulty. Vocal cords were viewed and appeared normal. The scope was advanced to the second portion of the duodenum. The duodenum and pylorus were normal. Antrum and body of the stomach were normal. Retroflexion revealed a normal-appearing fundus. Stomach was inflated, and light was easily seen transilluminating in the left subcostal region. This area was anesthetized with 1% lidocaine and a 1 cm incision made. The introducer wire was placed through the sheath and grasped with the snare and withdrawn through the oral cavity. This was then connected to the 20[place] PEG tube, and this was inserted with a pull technique through the abdominal wall. This was secured with a flange at 3 cm. The upper endoscope was reinserted, and the PEG tube appears to be in good place. The silastic tube was cut and the feeding adapter placed. A gauze dressing was applied. The patient tolerated the procedure well. Blood loss minimal. She returned to her room in stable condition. /[id number] AB/LEX
[2020-03-22] MEDS: Acetaminophen/HYDROcodone 325-10 MG Tab PO SCH ×4 (09:43→20:38)
[2020-03-22] MEDS: Aspirin 81 MG Tab.EC PO SCH (09:48)
[2020-03-22] MEDS: Ferrous Sulfate 325 MG Tab PO SCH ×2 (09:48→17:28)
[2020-03-22] MEDS: Cholecalciferol (Vitamin D3) 25 MCG Tab PO SCH (09:49)
[2020-03-22] MEDS: Potassium Chloride 20 MEQ Tab.ER PO SCH (09:49)
[2020-03-22] MEDS: Famotidine 20 MG Tab PO SCH (09:49)
--- NOTE | 2020-03-22 10:43 | PN ---
DATE SEEN: 03/22/2020 SUBJECTIVE: Sandrita Burleson is a delightful 85-year-old female with diagnosis of sarcoma of the left thigh. Feeding tube button was placed yesterday. IV fluids were discontinued. Diet will be advanced and feedings per dietary staff. Hemoglobin stable 7473. White count 12,000, repeat 49. Electrolytes were satisfactory. The GFR is 39. Hydration issue. PHYSICAL EXAMINATION: VITAL SIGNS: 36.7, 92, 110/57, 20, 93% 1 L. GENERAL: Soft spoken, but alert and appropriate. NECK: Benign. CHEST: Clear in all lung kilpatrick. HEART: Soft murmur, occasional ectopy. Surgical button intact. ASSESSMENT: Sarcoma, left thigh, surgical button. PLAN: Medications, care and treatment appropriate. Therapy on board. /[id number] VALERIE/LEX
[2020-03-22] MEDS: Enoxaparin 30 MG/0.3 ML Syringe SUBCUT SCH (13:20)
[2020-03-22] MEDS: Mirtazapine 15 MG Tab PO SCH (20:39)
[2020-03-22] MEDS: Ondansetron 4 MG Tab.DIS PO PRN (21:04)
[2020-03-23] MEDS: Pantoprazole 40 MG Tab.CR PO SCH (06:14)
[2020-03-23] MEDS: Potassium Chloride 20 MEQ Tab.ER PO SCH (08:36)
[2020-03-23] MEDS: Aspirin 81 MG Tab.EC PO SCH (08:36)
[2020-03-23] MEDS: Ferrous Sulfate 325 MG Tab PO SCH ×2 (08:36→17:07)
[2020-03-23] MEDS: Cholecalciferol (Vitamin D3) 25 MCG Tab PO SCH (08:37)
[2020-03-23] MEDS: Famotidine 20 MG Tab PO SCH (08:37)
[2020-03-23] MEDS: Acetaminophen/HYDROcodone 325-10 MG Tab PO SCH ×3 (08:37→17:07)
[2020-03-23] MEDS: Enoxaparin 30 MG/0.3 ML Syringe SUBCUT SCH (12:31)
[2020-03-23] MEDS: Ondansetron 4 MG Tab.DIS PO PRN (13:57)
[2020-03-23] MEDS ORDERED: Acetaminophen/HYDROcodone 325-10 MG Tab PO PRN (17:49)
[2020-03-23] MEDS: Acetaminophen 500 MG Tab PO SCH (18:14)
[2020-03-23] MEDS: Ibuprofen 200 MG Tab PO SCH (18:14)
[2020-03-23] MEDS: Mirtazapine 15 MG Tab PO SCH (20:18)
[2020-03-24] MEDS: Ibuprofen 200 MG Tab PO SCH ×3 (01:04→13:12)
[2020-03-24] MEDS: Acetaminophen 500 MG Tab PO SCH ×3 (01:05→13:14)
[2020-03-24] MEDS: Pantoprazole 40 MG Tab.CR PO SCH (06:03)
[2020-03-24] MEDS: Aspirin 81 MG Tab.EC PO SCH (08:19)
[2020-03-24] MEDS: Potassium Chloride 20 MEQ Tab.ER PO SCH (08:19)
[2020-03-24] MEDS: Famotidine 20 MG Tab PO SCH (08:19)
[2020-03-24] MEDS: Ferrous Sulfate 325 MG Tab PO SCH (08:19)
[2020-03-24] MEDS: Cholecalciferol (Vitamin D3) 25 MCG Tab PO SCH (08:19)
--- NOTE | 2020-03-24 09:42 | PCM.PN ---
- General Info Date of Service: 03/24/20 Subjective Update: Sandrita has small emesis yesterday afternoon when nurse did oral cares, then had larger emesis during the night with tube feeding. States mouth is dry and stomach hurts, denies nausea, had some belching this morning, passing some gas but has not had a bowel movement since before her PEG tube was placed. Edema in left thigh where sarcoma is located. Had blisters on the top of her toes on both feet, they have popped, were noticed after they switched from doing TEDs to ALFREDO wraps. Functional Status: Reports: Urinating. Denies: Ambulating - Review of Systems Pulmonary: Reports: No Symptoms Cardiovascular: Reports: No Symptoms Gastrointestinal: Reports: Abdominal Pain, Decreased Appetite - Patient Data Vitals - Most Recent: Last Vital Signs Temp 97.6 F 03/23/20 08:00 Pulse 82 03/23/20 08:00 Resp 16 03/23/20 08:00 BP 129/67 03/23/20 08:00 Pulse Ox 93 L 03/23/20 08:00 Weight - Most Recent: 144 lb 8 oz I&O - Last 24 Hours: Intake & Output 03/23/20 03/24/20 03/24/20 22:59 06:59 14:59 Intake Total 30 500 Balance 30 500 Med Orders - Current: Current Medications Acetaminophen (Tylenol Extra Strength) 500 mg PO Q6H [facility] Last Admin: 03/24/20 06:06 Dose: 500 mg Documented by: Hydrocodone Bitart/Acetaminophen ([place] 325-10 Mg) 1 tab PO QID PRN PRN Reason: Pain (severe 7-10) Al Hydroxide/Mg Hydroxide (Mag-Al Susp) 30 ml PO Q2H PRN PRN Reason: Indigestion Last Admin: 03/15/20 00:38 Dose: 30 ml Documented by: Aspirin (Halfprin) 81 mg PO DAILY [facility] Last Admin: 03/24/20 08:19 Dose: 81 mg Documented by: Carboxymethylcellulose (Refresh Optive) 0 ml EYEBOTH ASDIRECTED PRN PRN Reason: Dry Eyes Cholecalciferol (Vitamin D3) 25 mcg PO DAILY [facility] Last Admin: 03/24/20 08:19 Dose: 25 mcg Documented by: Enoxaparin Sodium (Lovenox) 30 mg SUBCUT Q24H [facility] Last Admin: 03/23/20 12:31 Dose: 30 mg Documented by: Famotidine (Pepcid) 20 mg PO DAILY [facility] Last Admin: 03/24/20 08:19 Dose: 20 mg Documented by: Ferrous Sulfate (Ferrous Sulfate) 325 mg PO BIDMEALS [facility] Last Admin: 03/24/20 08:19 Dose: 325 mg Documented by: Ibuprofen (Motrin) 200 mg PO Q6H [facility] Last Admin: 03/24/20 06:06 Dose: 200 mg Documented by: Mirtazapine (Remeron) 15 mg PO BEDTIME [facility] Last Admin: 03/23/20 20:18 Dose: 15 mg Documented by: Ondansetron HCl (Zofran Odt) 4 mg PO Q4H PRN PRN Reason: Nausea/Vomiting Last Admin: 03/23/20 13:57 Dose: 4 mg Documented by: Pantoprazole Sodium (Protonix) 40 mg PO DAILY@0600 [facility] Last Admin: 03/24/20 06:03 Dose: 40 mg Documented by: Potassium Chloride (Klor-Con M20) 20 meq PO DAILY [facility] Last Admin: 03/24/20 08:19 Dose: 20 meq Documented by: Sodium Chloride (Saline Flush) 10 ml FLUSH ASDIRECTED PRN PRN Reason: Keep Vein Open Last Admin: 03/21/20 10:15 Dose: 10 ml Documented by: Discontinued Medications Acetaminophen (Tylenol) 650 mg PO Q4H PRN PRN Reason: Pain Hydrocodone Bitart/Acetaminophen ([place] 325-5 Mg) 1 tab PO Q4H PRN PRN Reason: Pain Last Admin: 03/19/20 10:05 Dose: 1 tab Documented by: Hydrocodone Bitart/Acetaminophen ([place] 325-10 Mg) 1 tab PO QID [facility] Last Admin: 03/23/20 17:07 Dose: 1 tab Documented by: Famotidine (Pepcid) 20 mg PO BID [facility] Last Admin: 03/16/20 08:31 Dose: 20 mg Documented by: Fentanyl (Duragesic) 12 mcg TRDERM Q72H [facility] Last Admin: 03/16/20 13:15 Dose: 12 mcg Documented by: Fentanyl (Duragesic) Confirm Administered Dose 12 mcg .ROUTE .ST-MED ONE Stop: 03/16/20 13:15 Last Admin: 03/16/20 13:17 Dose: Not Given Documented by: Hydromorphone HCl (Dilaudid) 1 mg IVPUSH ONETIME ONE Stop: 03/21/20 18:04 Last Admin: 03/22/20 00:50 Dose: Not Given Documented by: Lactated Ringer's (Ringers, Lactated) 1,000 mls @ 125 mls/hr IV ASDIRECTED [facility] Last Admin: 03/21/20 10:15 Dose: 125 mls/hr Documented by: Lactated Ringer's (Ringers, Lactated) 1,000 mls @ 75 mls/hr IV ASDIRECTED [facility] Last Admin: 03/21/20 20:38 Dose: 75 mls/hr Documented by: Pioglitazone HCl (Actos) 15 mg PO DAILY [facility] Last Admin: 03/15/20 08:04 Dose: 15 mg Documented by: Potassium Chloride (Klor-Con M20) 20 meq PO BID [facility] Last Admin: 03/14/20 08:20 Dose: 20 meq Documented by: - Exam General: Alert, Oriented, Cooperative, Mild Distress Lungs: Clear to Auscultation, Normal Respiratory Effort Cardiovascular: Regular Rate, Regular Rhythm GI/Abdominal Exam: Soft, No Distention, Guarding, Abnormal Bowel Sounds (hypoactive). No: Rigid, Rebound Extremities: Pedal Edema (left anterolateral thigh) Peripheral Pulses: 2+: Radial (L), Radial (R) Skin: Warm, Dry, Other (unroofed blisters on bilateral 2nd MCP joints, some surrounding hyperpigmention.) Sepsis Event Note - Evaluation Sepsis Screening Result: No Definite Risk - Problem List & Annotations (1) Weakness SNOMED Code(s): 54984286 Code(s): R53.1 - WEAKNESS Status: Acute Current Visit: No (2) Malnutrition SNOMED Code(s): 62904265 Code(s): E46 - UNSPECIFIED PROTEIN-CALORIE MALNUTRITION Status: Acute Current Visit: Yes Qualifiers: Malnutrition type: protein-calorie malnutrition Protein-calorie malnutrition severity: severe Qualified Code(s): E43 - Unspecified severe protein-calorie malnutrition (3) Hypoalbuminemia SNOMED Code(s): 779120919 Code(s): E88.09 - OTH DISORDERS OF PLASMA-PROTEIN METABOLISM, NEC Status: Acute Current Visit: No (4) Palliative care status SNOMED Code(s): 071892838 Code(s): Z51.5 - ENCOUNTER FOR PALLIATIVE CARE Status: Acute Current Visit: No (5) S/P small bowel resection SNOMED Code(s): 931468340847202, 482621329, 679942703957066 Code(s): Z90.49 - ACQUIRED ABSENCE OF OTHER SPECIFIED PARTS OF DIGESTIVE TRACT Status: Chronic Current Visit: No (6) Sarcoma SNOMED Code(s): 072495915 Code(s): 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 OF CONNECTIVE AND SOFT TISSUE, UNSP Status: Acute Current Visit: No Annotation/Comment:: left thigh (7) S/P percutaneous endoscopic gastrostomy (PEG) tube placement SNOMED Code(s): 524523038 Code(s): Z93.1 - GASTROSTOMY STATUS Status: Acute Current Visit: Yes Onset Date: ~03/21/20 - Problem List Review Problem List Initiated/Reviewed/Updated: Yes - My Orders Last 24 Hours: My Active Orders 03/23/20 17:49 Acetaminophen/HYDROcodone [[place] 325-10 MG] 1 tab PO QID PRN 03/23/20 18:00 Acetaminophen [Tylenol Extra Strength] 500 mg PO Q6H Ibuprofen [Motrin] 200 mg PO Q6H 03/24/20 08:53 Alfredo Bandage [RC] ASDIRECTED 03/24/20 09:30 KUB [Abdomen 1V Flat] [CR] Routine - Plan Plan:: 1. Decrease Tube feedings to 75 ml/hr overnight, if tolerates may slow increase rate. 2. Will get portable abdominal x-ray to assess, if constipated will adjust her bowel regiment. 3. Pain: Tylenol 500 mg with Ibuprofen 200 mg qid, with Johnson 10/325 mg q6h as needed, alternating with scheduled. Reglan as needed nausea.
[2020-03-24] MEDS ORDERED: Bisacodyl 5 MG Tab PO PRN (09:46)
[2020-03-24] MEDS ORDERED: Metoclopramide 5 MG Tab PO PRN (09:46)
[2020-03-24] MEDS ORDERED: Bisacodyl 10 MG Supp RECTAL PRN (09:47)
[2020-03-24] MEDS ORDERED: Glycerin Adult 2.1 GM Supp RECTAL ONE (10:51)
[2020-03-24 12:37] VITALS: BP 126/59; PULSE 94
[2020-03-24] MEDS: Enoxaparin 30 MG/0.3 ML Syringe SUBCUT SCH (13:07)
--- NOTE | 2020-03-24 15:40 | PCM.DCSUM1 ---
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 She was found to have UTI, severe hypokalemia and malnutrition, hypoalbuminemia. She was admitted to swing bed on 03/13 for PT/OT and nutrition for strengthening. History of Hypertension, hyperlipidemia, chronic renal insufficiency, osteoarthritis, Diabetes, anxiety, depression, and GERD. Diagnosis: Stroke: No - Discharge Data Discharge Date: 03/24/20 Discharge Disposition: DC/Tfer to Acute Hospital 02 Condition: Good - Referral to Home Health Primary Care Physician: Zakia Etienne NP - Discharge Diagnosis/Problem(s) (1) Leukocytosis SNOMED Code(s): 466950014, 273521436 ICD Code: D72.829 - ELEVATED WHITE BLOOD CELL COUNT, UNSPECIFIED Status: Acute (2) Acute kidney injury SNOMED Code(s): 49775604, 08105674 ICD Code: N17.9 - ACUTE KIDNEY FAILURE, UNSPECIFIED Status: Acute (3) Thrombocytosis SNOMED Code(s): 8268380 ICD Code: D47.3 - ESSENTIAL (HEMORRHAGIC) THROMBOCYTHEMIA Status: Acute (4) Dehydration SNOMED Code(s): 80069490 ICD Code: E86.0 - DEHYDRATION Status: Acute (5) Constipation SNOMED Code(s): 35844853 ICD Code: K59.00 - CONSTIPATION, UNSPECIFIED Status: Acute (6) Weakness SNOMED Code(s): 89435048 ICD Code: R53.1 - WEAKNESS Status: Acute (7) Malnutrition SNOMED Code(s): 71325426 ICD Code: E46 - UNSPECIFIED PROTEIN-CALORIE MALNUTRITION Status: Acute Qualifiers: Malnutrition type: protein-calorie malnutrition Protein-calorie malnutrition severity: severe Qualified Code(s): E43 - Unspecified severe protein-calorie malnutrition (8) Hypoalbuminemia SNOMED Code(s): 076888453 ICD Code: E88.09 - OTH DISORDERS OF PLASMA-PROTEIN METABOLISM, NEC Status: Acute (9) Palliative care status SNOMED Code(s): 072889319 ICD Code: Z51.5 - ENCOUNTER FOR PALLIATIVE CARE Status: Acute (10) S/P small bowel resection SNOMED Code(s): 465251047749437, 658103384, 584731892677124 ICD Code: Z90.49 - ACQUIRED ABSENCE OF OTHER SPECIFIED PARTS OF DIGESTIVE TRACT Status: Chronic (11) Sarcoma SNOMED Code(s): 101482863 ICD Code: 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 OF CONNECTIVE AND SOFT TISSUE, UNSP Status: Acute Problem Details: left thigh (12) S/P percutaneous endoscopic gastrostomy (PEG) tube placement SNOMED Code(s): 512540719 ICD Code: Z93.1 - GASTROSTOMY STATUS Status: Acute Onset Date: ~03/21/20 (13) GERD (gastroesophageal reflux disease) SNOMED Code(s): 045427119 ICD Code: K21.9 - GASTRO-ESOPHAGEAL REFLUX DISEASE WITHOUT ESOPHAGITIS Status: Chronic Qualifiers: Esophagitis presence: esophagitis presence not specified Qualified Code(s): K21.9 - Gastro-esophageal reflux disease without esophagitis - Patient Summary/Data Operative Procedure(s) Performed: PEG placement Consults: Consultations 03/13/20 10:06 OT Evaluation and Treatment [CONS] Routine Please Evaluate and Treat. OT Reason for Consult: Strengthening This query below is only for informational purposes and is not editable. PT Evaluation and Treatment [CONS] Routine Please Evaluate and Treat. PT Reason for Consult: Ambulation This query below is only for informational purposes and is not editable. 03/20/20 10:27 Consult to Physician [CONS] Routine Consulting Provider: Rick Nunn Call Completed to Consulting Physician: Yes Reason for Consult: feeding tube///button for nutrtion Date Notified: 03/20/20 Time Notified: 10:00 Hospital Course: Sandrita had albumin of 1.[address] Nunn was consulted on 03/20, had PEG tubed placed on 03/21. Initially had 4 times a day feedings but patient was not eating in addition to her feedings so changed to continuous feeding overnight. She was at a rate of 150 ml/hr, had large emesis approximately 3 am, stopped and changed to gravity. Ate about 10% today. Had not had a bowel movement since 03/20, so abdominal x-ray was done showed lot of stool in rectal vault and up through ascending colon. She had elevated WBC on 03/15 at 12.4, on 03/18 15.9 but no workup was done, repeated today and came back at 19.0 with platelet count of 561. She is afebrile, no cough, shortness of breath or chest pain. Still had abdominal pain but more on right side and PEG site looked good. Chest x-ray was negative per my read. UA negative for infection. Hemoglobin improved from 7.3 to 7.8. Discussed with her son Jas, feel that patient is more acute process going on and needs to be changed to inpatient acute status for more testing and IV fluids, more monitoring. He is in agreement with transfer to acute care. Discussed with no obvious site of infection, her Cr has gone up since 03/15 from 0.9 to 1.3. She has not had much intake since so her leukocytosis could be hemoconcentration from dehydration. Blood cultures are pending. - Patient Instructions Diet: Diabetic Diet Diet, Other: tube feeding Activity: As Tolerated Other/Special Instructions: transfer to acute inpatient - Discharge Plan *PRESCRIPTION DRUG MONITORING PROGRAM REVIEWED*: Not Applicable *COPY OF PRESCRIPTION DRUG MONITORING REPORT IN PATIENT MEGAN: Not Applicable Home Medications: Home Meds Aspirin [Adult Low Dose Aspirin EC] 81 mg PO DAILY 08/06/16 [History] Cholecalciferol (Vitamin D3) [Vitamin D3] 25 mcg PO DAILY 03/07/20 [History] Polyvinyl Alcohol/Povidone [Refresh] 1 drop EYEBOTH ASDIRECTED PRN 03/07/20 [History] Acetaminophen [Tylenol] 650 mg PO Q4H PRN tablet 03/12/20 [Rx] Carboxymethylcellulos/Glycerin [Refresh Optive] 0 ml EYEBOTH ASDIRECTED PRN bottle 03/12/20 [Rx] Enoxaparin [Lovenox] 30 mg SUBCUT Q24H syringe 03/12/20 [Rx] Pantoprazole [ProTONIX] 40 mg PO DAILY tab.cr 03/12/20 [Rx] Pioglitazone [Actos] 15 mg PO DAILY tablet 03/12/20 [Rx] Potassium Chloride [Klor-Con 10] 20 meq PO BID tab.er 03/12/20 [Rx] Acetaminophen/HYDROcodone [[place] 325-5 MG] 1 tab PO Q4H PRN tablet 03/13/20 [Rx] Mirtazapine [Remeron] 15 mg PO BEDTIME tablet 09/01/20 [Rx] Pantoprazole [ProTONIX] 40 mg PO DAILY tab.cr 03/13/20 [Rx] Potassium Chloride [Klor-Con M20] 20 meq PO BID tab.er 03/13/20 [Rx] Oxygen Therapy Mode: Room Air - Discharge Summary/Plan Comment DC Time >30 min.: No - Patient Data Vitals - Most Recent: Last Vital Signs Temp 97.5 F 03/24/20 08:00 Pulse 94 03/24/20 08:00 Resp 14 03/24/20 08:00 BP 126/59 L 03/24/20 08:00 Pulse Ox 92 L 03/24/20 08:00 Weight - Most Recent: 144 lb 8 oz I&O - Last 24 hours: Intake & Output 03/24/20 03/24/20 03/24/20 06:59 14:59 22:59 Intake Total 500 Balance 500 Lab Results - Last 24 hrs: Laboratory Results - last 24 hr 03/24/20 03/24/20 03/24/20 Range/Units 10:05 10:05 14:00 WBC 19.0 H (4.5-12.0) X10-3/uL Corrected WBC 18.8 H (4.5-12.0) X10(3) RBC 2.87 L (3.23-5.20) x10(6)uL Hgb 7.8 L (11.5-15.5) g/dL Hct 24.9 L (30.0-51.3) % MCV 86.8 (80-96) fL MCH 27.2 L (27.7-33.6) pg MCHC 31.3 L (32.2-35.4) g/dL RDW 17.8 H (11.5-15.5) % Plt Count 561 H (125-369) X10(3)uL MPV 8.1 (7.4-10.4) fL Add Manual Diff Yes Neutrophils % (Manual) 72 (46-82) % Band Neutrophils % 6 (0-6) % Lymphocytes % (Manual) 7 L (13-37) % Monocytes % (Manual) 9 (4-12) % Metamyelocytes % 4 H (0-0) % Myelocytes % 1 H (0-0) % Blast Cells % 1 H (0-0) % Nucleated RBCs 1 H (0-0) /100WBC Anisocytosis Few Sodium 135 (135-145) mmol/L Potassium 5.2 (3.5-5.3) mmol/L Chloride 103 (100-110) mmol/L Carbon Dioxide 22 (21-32) mmol/L BUN 35 H D (7-18) mg/dL Creatinine 1.3 H (0.55-1.02) mg/dL Est Cr Clr Drug Dosing 22.73 mL/min Estimated GFR (MDRD) 39 L (>60) BUN/Creatinine Ratio 26.9 H (9-20) Glucose 264 H (80-116) mg/dL Calcium 8.6 (8.6-10.2) mg/dL Urine Color Yellow (YELLOW) Urine Appearance Slightly cloudy (CLEAR) Urine pH 5.0 (5.0-6.5) Ur Specific [place] 1.010 (1.010-1.025) Urine Protein Negative (NEGATIVE) mg/dL Urine Glucose (UA) Normal (NORMAL) mg/dL Urine Ketones Negative (NEGATIVE) mg/dL Urine Occult Blood Negative (NEGATIVE) Urine Nitrite Negative (NEGATIVE) Urine Bilirubin Negative (NEGATIVE) Urine Urobilinogen 1 H (NEGATIVE) mg/dL Ur Leukocyte Esterase Negative (NEGATIVE) U Hyaline Cast (Auto) Few H (NS) Urine RBC 0-5 (0-5) Urine WBC 0-5 (0-5) Ur Squamous Epith Cells Few H (NS,R,O) Urine Bacteria Few H (NS) Urine Yeast Occasional H (NS) Med Orders - Current: Current Medications Acetaminophen (Tylenol Extra Strength) 500 mg PO Q6H [facility] Last Admin: 03/24/20 13:14 Dose: 500 mg Documented by: Hydrocodone Bitart/Acetaminophen ([place] 325-10 Mg) 1 tab PO QID PRN PRN Reason: Pain (severe 7-10) Al Hydroxide/Mg Hydroxide (Mag-Al Susp) 30 ml PO Q2H PRN PRN Reason: Indigestion Last Admin: 03/15/20 00:38 Dose: 30 ml Documented by: Aspirin (Halfprin) 81 mg PO DAILY [facility] Last Admin: 03/24/20 08:19 Dose: 81 mg Documented by: Bisacodyl (Dulcolax) 5 mg PO DAILY PRN PRN Reason: Constipation Bisacodyl (Dulcolax) 10 mg RECTAL DAILY PRN PRN Reason: Constipation Carboxymethylcellulose (Refresh Optive) 0 ml EYEBOTH ASDIRECTED PRN PRN Reason: Dry Eyes Cholecalciferol (Vitamin D3) 25 mcg PO DAILY [facility] Last Admin: 03/24/20 08:19 Dose: 25 mcg Documented by: Enoxaparin Sodium (Lovenox) 30 mg SUBCUT Q24H [facility] Last Admin: 03/24/20 13:07 Dose: 30 mg Documented by: Famotidine (Pepcid) 20 mg PO DAILY [facility] Last Admin: 03/24/20 08:19 Dose: 20 mg Documented by: Ferrous Sulfate (Ferrous Sulfate) 325 mg PO BIDMEALS [facility] Last Admin: 03/24/20 08:19 Dose: 325 mg Documented by: Ibuprofen (Motrin) 200 mg PO Q6H [facility] Last Admin: 03/24/20 13:12 Dose: 200 mg Documented by: Metoclopramide HCl (Reglan) 5 mg PO Q8H PRN PRN Reason: Nausea/Vomiting Mirtazapine (Remeron) 15 mg PO BEDTIME [facility] Last Admin: 03/23/20 20:18 Dose: 15 mg Documented by: Ondansetron HCl (Zofran Odt) 4 mg PO Q4H PRN PRN Reason: Nausea/Vomiting Last Admin: 03/23/20 13:57 Dose: 4 mg Documented by: Pantoprazole Sodium (Protonix) 40 mg PO DAILY@0600 [facility] Last Admin: 03/24/20 06:03 Dose: 40 mg Documented by: Potassium Chloride (Klor-Con M20) 20 meq PO DAILY [facility] Last Admin: 03/24/20 08:19 Dose: 20 meq Documented by: Sodium Chloride (Saline Flush) 10 ml FLUSH ASDIRECTED PRN PRN Reason: Keep Vein Open Last Admin: 03/21/20 10:15 Dose: 10 ml Documented by: Discontinued Medications Acetaminophen (Tylenol) 650 mg PO Q4H PRN PRN Reason: Pain Hydrocodone Bitart/Acetaminophen ([place] 325-5 Mg) 1 tab PO Q4H PRN PRN Reason: Pain Last Admin: 03/19/20 10:05 Dose: 1 tab Documented by: Hydrocodone Bitart/Acetaminophen ([place] 325-10 Mg) 1 tab PO QID [facility] Last Admin: 03/23/20 17:07 Dose: 1 tab Documented by: Famotidine (Pepcid) 20 mg PO BID [facility] Last Admin: 03/16/20 08:31 Dose: 20 mg Documented by: Fentanyl (Duragesic) 12 mcg TRDERM Q72H [facility] Last Admin: 03/16/20 13:15 Dose: 12 mcg Documented by: Fentanyl (Duragesic) Confirm Administered Dose 12 mcg .ROUTE .STK-MED ONE Stop: 03/16/20 13:15 Last Admin: 03/16/20 13:17 Dose: Not Given Documented by: Glycerin (Sani-Supp Adult) 1 supp RECTAL ONETIME ONE Stop: 03/24/20 10:52 Last Admin: 03/24/20 13:04 Dose: 1 supp Documented by: Hydromorphone HCl (Dilaudid) 1 mg IVPUSH ONETIME ONE Stop: 03/21/20 18:04 Last Admin: 03/22/20 00:50 Dose: Not Given Documented by: Lactated Ringer's (Ringers, Lactated) 1,000 mls @ 125 mls/hr IV ASDIRECTED [facility] Last Admin: 03/21/20 10:15 Dose: 125 mls/hr Documented by: Lactated Ringer's (Ringers, Lactated) 1,000 mls @ 75 mls/hr IV ASDIRECTED [facility] Last Admin: 03/21/20 20:38 Dose: 75 mls/hr Documented by: Pioglitazone HCl (Actos) 15 mg PO DAILY [facility] Last Admin: 03/15/20 08:04 Dose: 15 mg Documented by: Potassium Chloride (Klor-Con M20) 20 meq PO BID [facility] Last Admin: 03/14/20 08:20 Dose: 20 meq Documented by: *Q Meaningful Use (DIS) - VTE *Q VTE Mechanical Contraindications *Q: At Risk for Falls
== END 2020-03-24 15:24 | DRG 947 ==
LOC: FB.MS 10:00
PROVIDERS: ADMIT Family Medicine; ATTEND Family Medicine
PROC: 0DH63UZ Insertion of Feeding Device into Stomach, Percutaneous Approach (ICD-10-PCS; principal; 2020-03-21)
DX: R53.81 Other malaise (principal); E43 Unspecified severe protein-calorie malnutrition; N17.9 Acute kidney failure, unspecified; D47.3 Essential (hemorrhagic) thrombocythemia; E86.0 Dehydration; E87.6 Hypokalemia; E88.09 Other disorders of plasma-protein metabolism, not elsewhere classified; Z20.828 Contact with and (suspected) exposure to other viral communicable diseases; E78.5 Hyperlipidemia, unspecified; N18.9 Chronic kidney disease, unspecified; M19.90 Unspecified osteoarthritis, unspecified site; F41.9 Anxiety disorder, unspecified; F32.9 Major depressive disorder, single episode, unspecified; D64.9 Anemia, unspecified; I12.9 Hypertensive chronic kidney disease with stage 1 through stage 4 chronic kidney disease, or unspecified chronic kidney disease; E11.22 Type 2 diabetes mellitus with diabetic chronic kidney disease; K21.9 Gastro-esophageal reflux disease without esophagitis; K59.00 Constipation, unspecified; Z51.5 Encounter for palliative care; C76.52 Malignant neoplasm of left lower limb; Z93.1 Gastrostomy status; Z79.82 Long term (current) use of aspirin; Z79.899 Other long term (current) drug therapy
CPT/HCPCS: 00731-QZ; 36415; 71045; 74018; 80048; 80053; 81001; 82272; 82728; 83540; 83550; 83735; 84132; 85025; 85027; 85045; 87040; 97110-GP; 97116-GP; 97530-GO; 97530-GP; 97535-GO; 99304; 99307; 99308; A9270-GY; J1650; J2001; J2704; J7120; U0002

== ENCOUNTER 2020-03-24 15:25 | Inpatient (IN) | payer MEDICARE ==
[2020-03-24] MEDS ORDERED: Sodium Chloride 0.9% 10 ML Syringe FLUSH PRN (16:16)
[2020-03-24] MEDS ORDERED: Carboxymethylcellulose 0.5%/Glycerin 0.9% Ophth Soln 15 ML Bottle EYEBOTH PRN (16:28)
[2020-03-24] MEDS ORDERED: Acetaminophen/HYDROcodone 325-10 MG Tab PO PRN (16:31)
[2020-03-24] MEDS ORDERED: Aluminum Hydroxide/Magnesium Hydroxide Susp 30 ML Cup PO PRN (16:32)
[2020-03-24] MEDS ORDERED: Bisacodyl 10 MG Supp RECTAL PRN (16:33)
[2020-03-24] MEDS ORDERED: Metoclopramide 5 MG Tab PO PRN (16:34)
--- NOTE | 2020-03-24 16:44 | PCM.HP.2 ---
H&P History of Present Illness - General Date of Service: 03/24/20 Admit Problem/Dx: Admission Diagnosis/Problem Admission Diagnosis/Problem Leukocytosis - History of Present Illness Initial Comments - Free Text/Narative: Sandrita was in swing bed for PT/OT after acute stay for hypokalemia, UTI, weakness, malnutrition. She had albumin of 1.[address] Nunn was consulted on 03/20, had PEG tubed placed on 03/21. Initially had 4 times a day feedings but patient was not eating in addition to her feedings so changed to continuous feeding overnight. She was at a rate of 150 ml/hr, had large emesis approximately 3 am 03/24, stopped and changed to gravity. Ate about 10% today. Had not had a bowel movement since 03/20, so abdominal x-ray was done showed lot of stool in rectal vault and up through ascending colon. She had elevated WBC on 03/15 at 12.4, on 03/18 15.9, no workup was done, repeated today and came back at 19.0 with platelet count of 561. She is afebrile, no cough, shortness of breath or chest pain. Still had abdominal pain but more on right side and PEG site looked good. Chest x-ray was negative per my read. UA negative for infection. Hemoglobin improved from 7.3 to 7.8. Discussed with her son Jas, feel that patient is more acute process going on and needs to be changed to inpatient acute status for more testing and IV fluids, more monitoring. He is in agreement with transfer to acute care. Discussed with no obvious site of infection, her Cr has gone up since 03/15 from 0.9 to 1.3. She has not had much oral intake since so her leukocytosis could be hemoconcentration from dehydration. Blood cultures are pending. - Related Data Allergies/Adverse Reactions: Allergies Allergy/AdvReac Type Severity Reaction Status Date / Time lisinopril Allergy Cannot Verified 03/07/20 09:01 Remember meperidine Allergy Cannot Verified 03/07/20 09:01 Remember metformin Allergy Irritabilit Verified 03/07/20 09:01 y phenytoin Allergy Cannot Verified 03/07/20 09:01 Remember Home Medications: Home Meds Aspirin [Adult Low Dose Aspirin EC] 81 mg PO DAILY 08/06/16 [History] Cholecalciferol (Vitamin D3) [Vitamin D3] 25 mcg PO DAILY 03/07/20 [History] Polyvinyl Alcohol/Povidone [Refresh] 1 drop EYEBOTH ASDIRECTED PRN 03/07/20 [History] Acetaminophen [Tylenol] 650 mg PO Q4H PRN tablet 03/12/20 [Rx] Carboxymethylcellulos/Glycerin [Refresh Optive] 0 ml EYEBOTH ASDIRECTED PRN bottle 03/12/20 [Rx] Enoxaparin [Lovenox] 30 mg SUBCUT Q24H syringe 03/12/20 [Rx] Pantoprazole [ProTONIX] 40 mg PO DAILY tab.cr 03/12/20 [Rx] Pioglitazone [Actos] 15 mg PO DAILY tablet 03/12/20 [Rx] Potassium Chloride [Klor-Con 10] 20 meq PO BID tab.er 03/12/20 [Rx] Acetaminophen/HYDROcodone [[place]tten 325-5 MG] 1 tab PO Q4H PRN tablet 03/13/20 [Rx] Mirtazapine [Remeron] 15 mg PO BEDTIME tablet 03/13/20 [Rx] Pantoprazole [ProTONIX] 40 mg PO DAILY tab.cr 03/13/20 [Rx] Potassium Chloride [Klor-Con M20] 20 meq PO BID tab.er 03/13/20 [Rx] Past Medical History HEENT History: Reports: None Other HEENT History: wears glasses Cardiovascular History: Reports: High Cholesterol, Hypertension, SOB on Exertion Respiratory History: Reports: PE, SOB Gastrointestinal History: Reports: Bowel Obstruction, Colon Polyp, GERD Genitourinary History: Reports: Renal Disease, Other (See Below) 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 [employer] SERVICES CONSULTANT History: Reports: Ectopic , Musculoskeletal History: Reports: Arthritis, Back Pain, Chronic Neurological History: Reports: None Psychiatric History: Reports: Anxiety Endocrine/Metabolic History: Reports: Diabetes, Type II Other Oncologic History: soft tissue sarcoma - Infectious Disease History Infectious Disease History: Reports: Measles, Mumps Other Infectious Disease History: covid neg 2 weeks ago - Past Surgical History HEENT Surgical History: Reports: Adenoidectomy, Cataract Surgery, Tonsillectomy Cardiovascular Surgical History: Reports: None Respiratory Surgical History: Reports: None GI Surgical History: Reports: Appendectomy, Colonoscopy Female Surgical History: Reports: Hysterectomy, Oophorectomy Endocrine Surgical History: Reports: None Neurological Surgical History: Reports: None Other Musculoskeletal Surgeries/Procedures:: foot surgery- bone removed ?spur Other Oncologic Surgeries/Procedures: biopsy done on lump on leg Social & Family History - Family History Family Medical History: Noncontributory - Caffeine Use Caffeine Use: Reports: Soda H&P Review of Systems - Review of Systems: Review Of Systems: Comprehensive ROS is negative, except as noted in HPI. Exam - Exam Exam: See Below - Exam General: Alert, Oriented (person but confused on place/time), Cooperative, Mild Distress HEENT: Other (Mucosa dry) Lungs: Clear to Auscultation, Normal Respiratory Effort Cardiovascular: Regular Rate, Regular Rhythm GI/Abdominal Exam: Normal Bowel Sounds, Soft, No Distention, Guarding, Tender (R UQ/Epigastric), Other (PEG tube site: intact, clean, dry, no drainage.). No: Rigid, Rebound Extremities: Pedal Edema (left anterolateral thigh 2+, nonpitting edema: bilateral hands, BLE.) Peripheral Pulses: 2+: Radial (L), Radial (R) Skin: Other (unroofed vesicles on bilateral 2nd/3rd MCP, no surrounding erythema.) - Patient Data Lab Results Last 24 hrs: see swing bed chart. *Q Meaningful Use (ADM) - VTE *Q VTE Mechanical Contraindications *Q: Bilateral Lower Edema - VTE Risk Assess *Q Each Risk Factor Represents 1 Point: Swollen Legs, Current Total Score 1 Point Risk Factors: 1 Each Risk Factor Represents 2 Points: Patient confined to bed greater than 72 hours Total Score 2 Point Risk Factors: 2 Each Risk Factor Represents 3 Points: Age 75 Years or Greater Total Score 3 Point Risk Factors: 3 Each Risk Factor Represents 5 Points: None Total Score 5 Point Risk Factors: 0 Venous Thromboembolism Risk Factor Score *Q: 6 - Problem List (1) Leukocytosis SNOMED Code(s): 097955497, 643613193 ICD Code: D72.829 - ELEVATED WHITE BLOOD CELL COUNT, UNSPECIFIED Status: Acute Current Visit: No (2) Acute kidney injury SNOMED Code(s): 92158300, 57606545 ICD Code: N17.9 - ACUTE KIDNEY FAILURE, UNSPECIFIED Status: Acute Current Visit: No (3) Constipation SNOMED Code(s): 11594309 ICD Code: K59.00 - CONSTIPATION, UNSPECIFIED Status: Acute Current Visit: No (4) Dehydration SNOMED Code(s): 24579708 ICD Code: E86.0 - DEHYDRATION Status: Acute Current Visit: No (5) Hypoalbuminemia SNOMED Code(s): 034152136 ICD Code: E88.09 - OTH DISORDERS OF PLASMA-PROTEIN METABOLISM, NEC Status: Acute Current Visit: No (6) Malnutrition SNOMED Code(s): 41329813 ICD Code: E46 - UNSPECIFIED PROTEIN-CALORIE MALNUTRITION Status: Acute Current Visit: No Qualifiers: Malnutrition type: protein-calorie malnutrition Protein-calorie malnutrition severity: severe Qualified Code(s): E43 - Unspecified severe protein-calorie malnutrition (7) S/P percutaneous endoscopic gastrostomy (PEG) tube placement SNOMED Code(s): 171610566 ICD Code: Z93.1 - GASTROSTOMY STATUS Status: Acute Current Visit: No Onset Date: ~03/21/20 (8) Sarcoma SNOMED Code(s): 580804050 ICD Code: 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 OF CONNECTIVE AND SOFT TISSUE, UNSP Status: Acute Current Visit: No Problem Details: left thigh (9) Thrombocytosis SNOMED Code(s): 3241717 ICD Code: D47.3 - ESSENTIAL (HEMORRHAGIC) THROMBOCYTHEMIA Status: Acute Current Visit: No (10) GERD (gastroesophageal reflux disease) SNOMED Code(s): 844386417 ICD Code: K21.9 - GASTRO-ESOPHAGEAL REFLUX DISEASE WITHOUT ESOPHAGITIS Status: Chronic Current Visit: No Qualifiers: Esophagitis presence: esophagitis presence not specified Qualified Code(s): K21.9 - Gastro-esophageal reflux disease without esophagitis (11) Iron deficiency anemia SNOMED Code(s): 21728969 ICD Code: D50.9 - IRON DEFICIENCY ANEMIA, UNSPECIFIED Status: Chronic Current Visit: Yes (12) Diabetes SNOMED Code(s): 13153933 ICD Code: E11.9 - TYPE 2 DIABETES MELLITUS WITHOUT COMPLICATIONS Status: Chronic Current Visit: Yes Qualifiers: Diabetes mellitus type: type 2 (13) Palliative care status SNOMED Code(s): 519162055 ICD Code: Z51.5 - ENCOUNTER FOR PALLIATIVE CARE Status: Acute Current Visit: No Problem List Initiated/Reviewed/Updated: Yes Orders Last 24hrs: Active Orders 24 hr Category Date Time Status Patient Status [ADT] Routine ADT 03/24/20 16:22 Ordered Blood Glucose Check, Bedside [RC] DAILY Care 03/25/20 06:00 Active Communication Order [RC] ROUTINE Care 03/24/20 16:42 Ordered Height and Weight [RC] DAILY Care 03/24/20 16:16 Ordered Oxygen Therapy [RC] PRN Care 03/24/20 16:16 Ordered Up With Assistance [RC] ASDIRECTED Care 03/24/20 16:16 Ordered VTE/DVT Education [RC] Per Unit Routine Care 03/24/20 16:16 Ordered Vital Signs [RC] QSHIFT Care 03/24/20 16:16 Ordered Consult to [employer] [CONS] Routine Cons 03/24/20 16:21 Ordered OT Evaluation and Treatment [CONS] Routine Cons 03/24/20 16:21 Ordered PT Evaluation and Treatment [CONS] Routine Cons 03/24/20 16:21 Ordered Adult Diet w Tube Feeding [DIET] Diet 03/24/20 Dinner Ordered Regular Diet [DIET] Diet 03/24/20 Dinner Ordered CBC WITH AUTO DIFF [HEME] Routine Lab 03/25/20 06:00 Ordered COMPREHENSIVE METABOLIC PN,CMP [CHEM] Routine Lab 03/25/20 06:00 Ordered Acetaminophen [Tylenol Extra Strength] Med 03/24/20 16:30 Ordered 500 mg PO Q6H Acetaminophen/HYDROcodone [[place]tten 325-10 MG] Med 03/24/20 16:31 Ordered 1 tab PO QID PRN Alum Hydroxide/Mag Hydroxide [Mag-Al Susp] Med 03/24/20 16:32 Ordered 30 ml PO Q4H PRN Aspirin [Halfprin] Med 03/25/20 09:00 Ordered 81 mg PO DAILY Carboxymethylcellulos/Glycerin [Refresh Optive] Med 03/24/20 16:28 Ordered 1 ml EYEBOTH ASDIRECTED PRN Cholecalciferol (Vitamin D3) [Vitamin D3] Med 03/25/20 09:00 Ordered 25 mcg PO DAILY Docusate Sodium/Sennosides [Senna Plus] Med 03/24/20 16:35 Ordered 1 tab PO DAILY PRN Enoxaparin [Lovenox] Med 03/24/20 16:30 Ordered 30 mg SUBCUT Q24H Famotidine [Pepcid] Med 03/25/20 09:00 Ordered 20 mg PO DAILY Ferrous Sulfate Med 03/24/20 18:00 Ordered 325 mg PO BIDMEALS Ibuprofen [Motrin] Med 03/24/20 16:30 Ordered 200 mg PO Q6H Metoclopramide [Reglan] Med 03/24/20 16:34 Ordered 5 mg PO Q8H PRN Mirtazapine [Remeron] Med 03/24/20 21:00 Ordered 15 mg PO BEDTIME Pantoprazole [ProTONIX] Med 03/25/20 09:00 Ordered 40 mg PO DAILY Potassium Chloride [Klor-Con 10] Med 03/25/20 09:00 Ordered 20 meq PO DAILY Sodium Chloride 0.9% [Normal Saline] 1,000 ml Med 03/24/20 16:30 Ordered IV ASDIRECTED Sodium Chloride 0.9% [Saline Flush] Med 03/24/20 16:16 Ordered 10 ml FLUSH ASDIRECTED PRN bisacodyL [Dulcolax] Med 03/24/20 16:33 Ordered 10 mg RECTAL DAILY PRN Saline Lock Insert [OM.PC] Routine Oth 03/24/20 16:16 Ordered Resuscitation Status Routine Resus Stat 03/24/20 16:16 Ordered Medication Orders Acetaminophen (Tylenol Extra Strength) 500 mg PO Q6H NICHOLAS Hydrocodone Bitart/Acetaminophen ([place] 325-10 Mg) 1 tab PO QID PRN PRN Reason: Pain (severe 7-10) Al Hydroxide/Mg Hydroxide (Mag-Al Susp) 30 ml PO Q4H PRN PRN Reason: Indigestion Aspirin (Halfprin) 81 mg PO DAILY NICHOLAS Bisacodyl (Dulcolax) 10 mg RECTAL DAILY PRN PRN Reason: Constipation Carboxymethylcellulose (Refresh Optive) 1 ml EYEBOTH ASDIRECTED PRN PRN Reason: Dry Eyes Cholecalciferol (Vitamin D3) 25 mcg PO DAILY NICHOLAS Enoxaparin Sodium (Lovenox) 30 mg SUBCUT Q24H NICHOLAS Famotidine (Pepcid) 20 mg PO DAILY NICHOLAS Ferrous Sulfate (Ferrous Sulfate) 325 mg PO BIDMEALS NICHOLAS Sodium Chloride (Normal Saline) 1,000 mls @ 100 mls/hr IV ASDIRECTED NICHOLAS Ibuprofen (Motrin) 200 mg PO Q6H NICHOLAS Metoclopramide HCl (Reglan) 5 mg PO Q8H PRN PRN Reason: Nausea/Vomiting Mirtazapine (Remeron) 15 mg PO BEDTIME NICHOLAS Pantoprazole Sodium (Protonix) 40 mg PO DAILY NICHOLAS Potassium Chloride (Klor-Con 10) 20 meq PO DAILY NICHOLAS Senna/Docusate Sodium (Senna Plus) 1 tab PO DAILY PRN PRN Reason: Constipation Sodium Chloride (Saline Flush) 10 ml FLUSH ASDIRECTED PRN PRN Reason: Keep Vein Open Assessment/Plan Comment:: 1. Transfer to acute inpatient care for IV fluids and closer monitoring. 2. NS at 100 ml/hr. 3. Continuous tube feeding at 75 ml/hr with 30-60 ml water before & after TF. Regular diet. 4. CBC, CMP tomorrow am. 5. No source of infection currently found, afebrile, will give IV fluids, recheck labs. If worsening or no change will get CT abdomen/pelvis. 6. Had bowel movement small on her own, soap suds enema given and had large stool then. Continue to monitor, Biscodyl suppository as needed, Senna-S as needed. 7. Pain: Tylenol 500 mg q6h with Ibuprofen 200 mg q6h. Van Etten 10/325 mg 1 tab qid as needed. 8. Daily weights. 9. FULL CODE. Jas, her son was in agreement with moving to acute inpatient status from swing bed, will keep him updated to condition and readjust treatments as necessary. - Mortality Measure Prognosis:: Poor
[2020-03-24] MEDS: Acetaminophen 500 MG Tab PO SCH ×2 (17:25→22:47)
[2020-03-24] MEDS: Ibuprofen 200 MG Tab PO SCH ×2 (17:25→22:47)
[2020-03-24] MEDS: Ferrous Sulfate 325 MG Tab PO SCH (17:26)
[2020-03-24] MEDS: Sodium Chloride 0.9% 1,000 ML IV SCH (17:29)
[2020-03-24] MEDS ORDERED: Mirtazapine 15 MG Tab PO SCH (21:00)
[2020-03-25] MEDS: Sodium Chloride 0.9% 1,000 ML IV SCH ×2 (04:55→15:33)
[2020-03-25] MEDS: Ibuprofen 200 MG Tab PO SCH ×5 (04:56→22:32)
[2020-03-25] MEDS: Acetaminophen 500 MG Tab PO SCH ×5 (04:56→22:32)
[2020-03-25] MEDS: Pantoprazole 40 MG Tab.CR PO SCH (07:14)
[2020-03-25] MEDS: Potassium Chloride 20 MEQ Tab.ER PO SCH (08:56)
[2020-03-25] MEDS: Cholecalciferol (Vitamin D3) 25 MCG Tab PO SCH (08:56)
[2020-03-25] MEDS: Famotidine 20 MG Tab PO SCH (08:56)
[2020-03-25] MEDS: Ferrous Sulfate 325 MG Tab PO SCH ×2 (08:56→17:45)
[2020-03-25] MEDS: Aspirin 81 MG Tab.EC PO SCH (08:56)
[2020-03-25] MEDS: Meropenem 1 GM SDV IVPUSH SCH ×2 (11:30→23:14)
[2020-03-25] MEDS ORDERED: Iopamidol 755 Mg/ML 100 ML Bottle IV ONE (11:46)
[2020-03-25] MEDS ORDERED: Insulin Lispro 100 Unit/ML 3 ML KwikPen SUBCUT ONE (13:14)
[2020-03-25] MEDS: Enoxaparin 30 MG/0.3 ML Syringe SUBCUT SCH (13:17)
[2020-03-25] MEDS: Insulin Lispro 100 Unit/ML 3 ML KwikPen SUBCUT SCH ×2 (13:17→17:50)
[2020-03-25] MEDS ORDERED: Morphine 2 MG/ML SYRINGE IVPUSH ONE (14:21)
--- NOTE | 2020-03-25 15:01 | PCM.PN ---
- General Info Date of Service: 03/25/20 Subjective Update: Sandrita pulled out her IV this morning, little confused, complaining of being cold, that she wants to . Asked why she felt that way, stated she was tired, cold and no one was listening to her, stated people where coming in every hour but not listening but she would not give specifics as to what they weren't listening to her about. Nurse felt she was more confused this morning. Spoke with her son Jas, no change in her WBC after IV fluids, did have improvement of her kidney function and no emesis since yesterday morning at 3 am. She also had 2 bowel movements yesterday, 1 small and 1 large(after soap suds enema). She remains afebrile. Blood cultures are pending. Reviewed CT abdomen/pelvis done 02/17/2020, noted a right lower pelvic possible ovarian mass, recommended follow up as it had increased in size since 2017 CT. Her son Jas was not aware of any mass from either 2016 or last month. He has elected to drive out from [place] and should be here tomorrow. - Patient Data Vitals - Most Recent: Last Vital Signs Temp 98.1 F 03/25/20 03:45 Pulse 90 03/25/20 03:45 Resp 18 03/25/20 03:45 BP 126/59 L 03/25/20 03:45 Pulse Ox 90 L 03/25/20 03:45 Weight - Most Recent: 148 lb I&O - Last 24 Hours: Intake & Output 03/24/20 03/25/20 03/25/20 22:59 06:59 14:59 Intake Total 200 790 849 Output Total 300 Balance -100 790 849 Lab Results Last 24 Hours: Laboratory Results - last 24 hr 03/25/20 03/25/20 03/25/20 Range/Units 06:30 06:30 12:22 WBC 19.2 H (4.5-12.0) X10-3/uL Corrected WBC 18.6 H (4.5-12.0) X10(3) RBC 2.65 L (3.23-5.20) x10(6)uL Hgb 7.2 L (11.5-15.5) g/dL Hct 23.1 L (30.0-51.3) % MCV 87.3 (80-96) fL MCH 27.3 L (27.7-33.6) pg MCHC 31.3 L (32.2-35.4) g/dL RDW 17.9 H (11.5-15.5) % Plt Count 530 H (125-369) X10(3)uL MPV 8.1 (7.4-10.4) fL Add Manual Diff Yes Neutrophils % (Manual) 68 (46-82) % Band Neutrophils % 5 (0-6) % Lymphocytes % (Manual) 14 (13-37) % Monocytes % (Manual) 6 (4-12) % Metamyelocytes % 4 H (0-0) % Myelocytes % 3 H (0-0) % Nucleated RBCs 3 H (0-0) /100WBC Anisocytosis Moderate H Sodium 138 (135-145) mmol/L Potassium 4.6 (3.5-5.3) mmol/L Chloride 105 (100-110) mmol/L Carbon Dioxide 23 (21-32) mmol/L BUN 33 H (7-18) mg/dL Creatinine 1.1 H (0.55-1.02) mg/dL Est Cr Clr Drug Dosing 26.86 mL/min Estimated GFR (MDRD) 47 L (>60) BUN/Creatinine Ratio 30.0 H (9-20) Glucose 184 H D (80-116) mg/dL POC Glucose 153 H (74-100) mg/dL Calcium 8.4 L (8.6-10.2) mg/dL Total Bilirubin 0.3 (0.1-1.3) mg/dL AST 30 H D (5-25) IU/L ALT 24 D (12-36) U/L Alkaline Phosphatase 317 H (56-112) IU/L Total Protein 5.6 L (6.0-8.0) g/dL Albumin 1.0 L* (3.2-4.6) g/dL Globulin 4.6 g/dL Albumin/Globulin Ratio 0.2 Med Orders - Current: Current Medications Acetaminophen (Tylenol Extra Strength) 500 mg PO Q6H [facility] Last Admin: 03/25/20 10:40 Dose: 500 mg Documented by: Hydrocodone Bitart/Acetaminophen (Cornell 325-10 Mg) 1 tab PO QID PRN PRN Reason: Pain (severe 7-10) Al Hydroxide/Mg Hydroxide (Mag-Al Susp) 30 ml PO Q4H PRN PRN Reason: Indigestion Aspirin (Halfprin) 81 mg PO DAILY [facility] Last Admin: 03/25/20 08:56 Dose: 81 mg Documented by: Bisacodyl (Dulcolax) 10 mg RECTAL DAILY PRN PRN Reason: Constipation Carboxymethylcellulose (Refresh Optive) 0 ml EYEBOTH ASDIRECTED PRN PRN Reason: Dry Eyes Cholecalciferol (Vitamin D3) 25 mcg PO DAILY [facility] Last Admin: 03/25/20 08:56 Dose: 25 mcg Documented by: Enoxaparin Sodium (Lovenox) 30 mg SUBCUT Q24H [facility] Last Admin: 03/25/20 13:17 Dose: 30 mg Documented by: Famotidine (Pepcid) 20 mg PO DAILY [facility] Last Admin: 03/25/20 08:56 Dose: 20 mg Documented by: Ferrous Sulfate (Ferrous Sulfate) 325 mg PO BIDMEALS [facility] Last Admin: 03/25/20 08:56 Dose: 325 mg Documented by: Sodium Chloride (Normal Saline) 1,000 mls @ 100 mls/hr IV ASDIRECTED [facility] Last Admin: 03/25/20 04:55 Dose: 100 mls/hr Documented by: Ibuprofen (Motrin) 200 mg PO Q6H [facility] Last Admin: 03/25/20 10:40 Dose: 200 mg Documented by: Insulin Human Lispro (Humalog) 0 unit SUBCUT TIDMEALS [facility]; Protocol Last Admin: 03/25/20 13:17 Dose: 1 units Documented by: Meropenem (Merrem) 1 gm IVPUSH Q12H [facility] Last Admin: 03/25/20 11:30 Dose: 1 gm Documented by: Metoclopramide HCl (Reglan) 5 mg PO Q8H PRN PRN Reason: Nausea/Vomiting Mirtazapine (Remeron) 15 mg PO BEDTIME [facility] Last Admin: 03/24/20 20:02 Dose: 15 mg Documented by: Pantoprazole Sodium (Protonix) 40 mg PO ACBREAKFAST [facility] Last Admin: 03/25/20 07:14 Dose: 40 mg Documented by: Potassium Chloride (Klor-Con M20) 20 meq PO DAILY [facility] Last Admin: 03/25/20 08:56 Dose: 20 meq Documented by: Senna/Docusate Sodium (Senna Plus) 1 tab PO DAILY PRN PRN Reason: Constipation Sodium Chloride (Saline Flush) 10 ml FLUSH ASDIRECTED PRN PRN Reason: Keep Vein Open Last Admin: 03/24/20 17:41 Dose: 10 ml Documented by: Discontinued Medications Iopamidol (Isovue-370 (76%)) 100 ml IV . DIRECTED ONE Stop: 03/25/20 11:47 Last Admin: 03/25/20 12:08 Dose: 85 ml Documented by: Morphine Sulfate (Morphine) 1 mg IVPUSH ONETIME ONE Stop: 03/25/20 14:22 Last Admin: 03/25/20 14:34 Dose: 1 mg Documented by: - Exam General: Alert, Cooperative, No Acute Distress Lungs: Clear to Auscultation, Normal Respiratory Effort Cardiovascular: Regular Rate, Regular Rhythm GI/Abdominal Exam: Normal Bowel Sounds, Soft, No Distention, Guarding, Tender (RLQ, Right flank). No: Rigid, Rebound Extremities: Pedal Edema (generalized edema throughout abdomen, extremities, pitting edema of left thigh.) Peripheral Pulses: 2+: Radial (L), Radial (R) Sepsis Event Note - Evaluation Sepsis Screening Result: No Definite Risk - Focused Exam Vital Signs: Vital Signs Temp Pulse Resp BP Pulse Ox 03/25/20 03:45 98.1 F 90 18 126/59 L 90 L - Problem List & Annotations (1) Leukocytosis SNOMED Code(s): 531444726, 290445790 Code(s): D72.829 - ELEVATED WHITE BLOOD CELL COUNT, UNSPECIFIED Status: Acute Current Visit: No (2) Acute kidney injury SNOMED Code(s): 23457943, 60809810 Code(s): N17.9 - ACUTE KIDNEY FAILURE, UNSPECIFIED Status: Acute Current Visit: No (3) Constipation SNOMED Code(s): 77936589 Code(s): K59.00 - CONSTIPATION, UNSPECIFIED Status: Acute Current Visit: No (4) Dehydration SNOMED Code(s): 71573624 Code(s): E86.0 - DEHYDRATION Status: Acute Current Visit: No (5) Hypoalbuminemia SNOMED Code(s): 535865541 Code(s): E88.09 - OTH DISORDERS OF PLASMA-PROTEIN METABOLISM, NEC Status: Acute Current Visit: No (6) Malnutrition SNOMED Code(s): 20981054 Code(s): E46 - UNSPECIFIED PROTEIN-CALORIE MALNUTRITION Status: Acute Current Visit: No Qualifiers: Malnutrition type: protein-calorie malnutrition Protein-calorie malnutrition severity: severe Qualified Code(s): E43 - Unspecified severe protein-calorie malnutrition (7) S/P percutaneous endoscopic gastrostomy (PEG) tube placement SNOMED Code(s): 244332997 Code(s): Z93.1 - GASTROSTOMY STATUS Status: Acute Current Visit: No Onset Date: ~03/21/20 (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, UNSP Status: Acute Current Visit: No Annotation/Comment:: left thigh (9) Thrombocytosis SNOMED Code(s): 1196208 Code(s): D47.3 - ESSENTIAL (HEMORRHAGIC) THROMBOCYTHEMIA Status: Acute Current Visit: No (10) GERD (gastroesophageal reflux disease) SNOMED Code(s): 100456488 Code(s): K21.9 - GASTRO-ESOPHAGEAL REFLUX DISEASE WITHOUT ESOPHAGITIS Status: Chronic Current Visit: No Qualifiers: Esophagitis presence: esophagitis presence not specified Qualified Code(s): K21.9 - Gastro-esophageal reflux disease without esophagitis (11) Iron deficiency anemia SNOMED Code(s): 42331437 Code(s): D50.9 - IRON DEFICIENCY ANEMIA, UNSPECIFIED Status: Chronic Current Visit: Yes (12) Diabetes SNOMED Code(s): 68023263 Code(s): E11.9 - TYPE 2 DIABETES MELLITUS WITHOUT COMPLICATIONS Status: Chronic Current Visit: Yes Qualifiers: Diabetes mellitus type: type 2 (13) Palliative care status SNOMED Code(s): 932504608 Code(s): Z51.5 - ENCOUNTER FOR PALLIATIVE CARE Status: Acute Current Visit: No - Problem List Review Problem List Initiated/Reviewed/Updated: Yes - My Orders Last 24 Hours: My Active Orders 03/24/20 Dinner Adult Diet w Tube Feeding [DIET] Regular Diet [DIET] 03/24/20 16:16 Height and Weight [RC] DAILY Oxygen Therapy [RC] PRN Up With Assistance [RC] ASDIRECTED VTE/DVT Education [RC] Per Unit Routine Vital Signs [RC] 04,16 Sodium Chloride 0.9% [Saline Flush] 10 ml FLUSH ASDIRECTED PRN Saline Lock Insert [OM.PC] Routine Resuscitation Status Routine 03/24/20 16:21 Consult to Blanket Cutter Hand [CONS] Routine OT Evaluation and Treatment [CONS] Routine PT Evaluation and Treatment [CONS] Routine 03/24/20 16:22 Patient Status [ADT] Routine 03/24/20 16:28 Carboxymethylcellulos/Glycerin [Refresh Optive] 0 ml EYEBOTH ASDIRECTED PRN 03/24/20 16:30 Acetaminophen [Tylenol Extra Strength] 500 mg PO Q6H Ibuprofen [Motrin] 200 mg PO Q6H Sodium Chloride 0.9% [Normal Saline] 1,000 ml IV ASDIRECTED 03/24/20 16:31 Acetaminophen/HYDROcodone [Cornell 325-10 MG] 1 tab PO QID PRN 03/24/20 16:32 Alum Hydroxide/Mag Hydroxide [Mag-Al Susp] 30 ml PO Q4H PRN 03/24/20 16:33 bisacodyL [Dulcolax] 10 mg RECTAL DAILY PRN 03/24/20 16:34 Metoclopramide [Reglan] 5 mg PO Q8H PRN 03/24/20 16:35 Docusate Sodium/Sennosides [Senna Plus] 1 tab PO DAILY PRN 03/24/20 16:42 Communication Order [RC] ROUTINE 03/24/20 18:00 Ferrous Sulfate 325 mg PO BIDMEALS 03/24/20 21:00 Mirtazapine [Remeron] 15 mg PO BEDTIME 03/25/20 06:00 Blood Glucose Check, Bedside [RC] 06,1130,1730 03/25/20 06:29 Aspiration Precautions [RC] ASDIRECTED Enteral Feedings [RC] Q8H 03/25/20 07:30 Pantoprazole [ProTONIX] 40 mg PO ACBREAKFAST 03/25/20 09:00 Aspirin [Halfprin] 81 mg PO DAILY Cholecalciferol (Vitamin D3) [Vitamin D3] 25 mcg PO DAILY Famotidine [Pepcid] 20 mg PO DAILY Potassium Chloride [Klor-Con M20] 20 meq PO DAILY 03/25/20 10:48 Abdomen Pelvis w Cont [CT] Routine 03/25/20 11:00 Meropenem [Merrem] 1 gm IVPUSH Q12H 03/25/20 12:00 Insulin Lispro [HumaLOG] See Protocol SUBCUT TIDMEALS 03/25/20 12:02 Supplement (Dietary) [Dietary Supplements] [RC] BID 03/25/20 13:00 Enoxaparin [Lovenox] 30 mg SUBCUT Q24H - Plan Plan:: 1. Add Merrem 1 g IV q8hr suspected abdominal infection. Repeat labs tomorrow. CT abdomen/pelvis with contrast done: showed mild ascites around liver, spleen, paracolic gutters extending to pelvis, bilateral pleural effusions with atelectasis of bilateral lower lobes. Generalized edema/anasarca which Dr Mayo stated makes it difficult to see infection. No abscess. Some infl ammation of right urothelium, mild. Hazy appearance to mesentry likely related to edema. Large enhancing soft tissue mass along proximal left femur. Left ovary seen. Right ovary, simple cyst, benign, stable from comparison of [address] Mayo stated on phone that if she is not improving, may need to have repeat CT as it may be early in infectious process. Ultrasound could be definitive for ovarian cyst but if we would be doing another CT would not need to get Ultrasound. 2. NS at 100 ml/hr. 3. Continuous tube feeding at 75 ml/hr with 30-60 ml water before & after TF. Regular diet. Her son, Jas stated she likes ice cream, strawberry milkshakes so will add these as snacks twice a day. 4. Continue to monitor, Biscodyl suppository as needed, Senna-S as needed. 5. Pain: Tylenol 500 mg q6h with Ibuprofen 200 mg q6h. Cornell 10/325 mg 1 tab qid as needed.
[2020-03-25] MEDS ORDERED: diphenhydrAMINE 25 MG Cap PO PRN (16:06)
[2020-03-25] MEDS ORDERED: traZODone 50 MG Tab PO PRN (16:36)
[2020-03-25] MEDS ORDERED: LORazepam 0.5 MG Tab PO PRN (17:12)
[2020-03-25] MEDS ORDERED: Lidocaine 5% 700 MG Patch TOP SCH (18:00)
[2020-03-25] MEDS: Morphine 2 MG/ML SYRINGE IVPUSH PRN (22:32)
[2020-03-26] MEDS: Sodium Chloride 0.9% 1,000 ML IV SCH ×2 (01:25→11:32)
[2020-03-26] MEDS: Acetaminophen 500 MG Tab PO SCH ×2 (05:14→10:51)
[2020-03-26] MEDS: Ibuprofen 200 MG Tab PO SCH ×2 (05:14→10:51)
[2020-03-26] MEDS ORDERED: Remove Patch*LIDODERM TRDERM SCH (06:00)
[2020-03-26] MEDS: Pantoprazole 40 MG Tab.CR PO SCH (06:38)
[2020-03-26] MEDS: Insulin Lispro 100 Unit/ML 3 ML KwikPen SUBCUT SCH ×2 (09:22→12:15)
[2020-03-26] MEDS: Famotidine 20 MG Tab PO SCH (09:28)
[2020-03-26] MEDS: Ferrous Sulfate 325 MG Tab PO SCH (09:28)
[2020-03-26] MEDS: Potassium Chloride 20 MEQ Tab.ER PO SCH (09:28)
[2020-03-26] MEDS: Aspirin 81 MG Tab.EC PO SCH (09:28)
[2020-03-26] MEDS: Cholecalciferol (Vitamin D3) 25 MCG Tab PO SCH (09:28)
[2020-03-26] MEDS: Morphine 2 MG/ML SYRINGE IVPUSH PRN (11:15)
[2020-03-26] MEDS ORDERED: Sodium Chloride 0.9% 250 ML IV SCH (11:15)
[2020-03-26 13:39] VITALS: BP 130/68; PULSE 87
[2020-03-26] MEDS: Enoxaparin 30 MG/0.3 ML Syringe SUBCUT SCH (14:13)
--- NOTE | 2020-03-26 17:17 | PCM.DCSUM1 ---
Discharge Summary - Hospital Course HPI Initial Comments: Sandrita was in swing bed for PT/OT after acute stay for hypokalemia, UTI, weakness, malnutrition. She had albumin of 1.[address] Nunn was consulted on 03/20, had PEG tubed placed on 03/21. Initially had 4 times a day feedings but patient was not eating in addition to her feedings so changed to continuous feeding overnight. She was at a rate of 150 ml/hr, had large emesis approximately 3 am 03/24, stopped and changed to gravity. Ate about 10% today. Had not had a bowel movement since 03/20, so abdominal x-ray was done showed lot of stool in rectal vault and up through ascending colon. She had elevated WBC on 03/15 at 12.4, on 03/18 15.9, no workup was done, repeated today and came back at 19.0 with platelet count of 561. She is afebrile, no cough, shortness of breath or chest pain. Still had abdominal pain but more on right side and PEG site looked good. Chest x-ray was negative per my read. UA negative for infection. Hemoglobin improved from 7.3 to 7.8. Discussed with her son Jas, feel that patient is more acute process going on and needs to be changed to inpatient acute status for more testing and IV fluids, more monitoring. He is in agreement with transfer to acute care. Discussed with no obvious site of infection, her Cr has gone up since 03/15 from 0.9 to 1.3. She has not had much oral intake since so her leukocytosis could be hemoconcentration from dehydration. Blood cultures are pending. Diagnosis: Stroke: No - Discharge Data Discharge Date: 03/26/20 Discharge Disposition: DC/Tfer to Acute Hospital 02 Condition: Stable - Referral to Home Health Primary Care Physician: Zakia Bellamy NP - Discharge Diagnosis/Problem(s) (1) Leukocytosis SNOMED Code(s): 139971146, 044506599 ICD Code: D72.829 - ELEVATED WHITE BLOOD CELL COUNT, UNSPECIFIED Status: Acute (2) Acute kidney injury SNOMED Code(s): 34678298, 05658958 ICD Code: N17.9 - ACUTE KIDNEY FAILURE, UNSPECIFIED Status: Acute (3) Constipation SNOMED Code(s): 26353273 ICD Code: K59.00 - CONSTIPATION, UNSPECIFIED Status: Acute (4) Dehydration SNOMED Code(s): 32841352 ICD Code: E86.0 - DEHYDRATION Status: Resolved (5) Hypoalbuminemia SNOMED Code(s): 164008431 ICD Code: E88.09 - OTH DISORDERS OF PLASMA-PROTEIN METABOLISM, NEC Status: Acute Problem Details: Albumin 0.9 on 03/26 (6) Malnutrition SNOMED Code(s): 73745908 ICD Code: E46 - UNSPECIFIED PROTEIN-CALORIE MALNUTRITION Status: Acute Qualifiers: Malnutrition type: protein-calorie malnutrition Protein-calorie malnutrition severity: severe Qualified Code(s): E43 - Unspecified severe protein-calorie malnutrition (7) S/P percutaneous endoscopic gastrostomy (PEG) tube placement SNOMED Code(s): 181433069 ICD Code: Z93.1 - GASTROSTOMY STATUS Status: Acute Onset Date: ~03/21/20 (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, UNSP Status: Acute Problem Details: left thigh (9) Thrombocytosis SNOMED Code(s): 6693835 ICD Code: D47.3 - ESSENTIAL (HEMORRHAGIC) THROMBOCYTHEMIA Status: Acute (10) GERD (gastroesophageal reflux disease) SNOMED Code(s): 415483180 ICD Code: K21.9 - GASTRO-ESOPHAGEAL REFLUX DISEASE WITHOUT ESOPHAGITIS Status: Chronic Qualifiers: Esophagitis presence: esophagitis presence not specified Qualified Code(s): K21.9 - Gastro-esophageal reflux disease without esophagitis (11) Iron deficiency anemia SNOMED Code(s): 47566617 ICD Code: D50.9 - IRON DEFICIENCY ANEMIA, UNSPECIFIED Status: Chronic Problem Details: Hgb 6.8 today, transfuse 1 units PRBCs. (12) Diabetes SNOMED Code(s): 15637484 ICD Code: E11.9 - TYPE 2 DIABETES MELLITUS WITHOUT COMPLICATIONS Status: Chronic Qualifiers: Diabetes mellitus type: type 2 (13) Palliative care status SNOMED Code(s): 249275580 ICD Code: Z51.5 - ENCOUNTER FOR PALLIATIVE CARE Status: Acute - Patient Summary/Data Consults: Consultations 03/24/20 16:21 Consult to Patent Clerk [CONS] Routine Comment: Physician Instructions: Quantity: Reason for Consult: tube feedings OT Evaluation and Treatment [CONS] Routine Please Evaluate and Treat. OT Reason for Consult: ADL's This query below is only for informational purposes and is not editable. PT Evaluation and Treatment [CONS] Routine Please Evaluate and Treat. PT Reason for Consult: Strengthening This query below is only for informational purposes and is not editable. Hospital Course: Was moved to acute care from Swing bed on Thursday as her WBC was 19.0, climbed to 21.7 today. Was started on Merrem 1 gram, had received IVF overnight Thursday as she was afebrile, no obvious source of infection. Blood cultures: no growth x 2 days. Her creatinine improved Thursday morning but white count remained same. CT abdomen/pelvis with contrast done, extensive anasarca in abdomen, ovarian cyst on right, no abscess seen, no signs of infection. Lipase normal. Had discussed with [facility], he had stated with no obvious source, afebrile with stable vitals concern would be for blood clot or necrosis for leukocytosis and antibiotics were not warranted so Merrem discontinued. 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 D-Dimer was 25. Hgb has been 7.3 on 03/18 and 7.8 on 03/24 and 6.8 today. EKG done this morning for central chest pain showed ST depression in V2, V3, T wave flattening in II, III, aVF, lateral leads, signs of ischemia most likely due to anemia. Troponin was normal. Her son, Jas, power of tax attorney and patient wanted transfusion and further workup for her conditions, did not want to change to comfort measures. Spoke with Dr Bailon, [facility](patient requested to go to [facility]), advised that patient and her son have been talked to about comfort measures by 3 different hospitalists during her stay here both in acute care and swing bed. Dr Bailon requested we transfuse 1 unit of PRBCs prior to sending the patient. She will go up by ground ambulance as direct admission for further workup with Oncology, Surgery and if needed. She had PEG tube placed to supplement nutrition as her albumin was 1.0 in swing bed and was started on bolus feedings on 03/22, then continuous overnight feedings on 03/23 at 150 ml/hr, had an emesis Thursday am at 3, rate decreased to 75 ml/hr, tolerated Thursday night, ate a little bit on Thursday and then pulled on the tubing to point it was leaking early this morning. Dr Nunn contacted, he could see tomorrow and made NPO but family wishes for further workup so Dr Nunn advised that she would be transferred to [place], will need to follow up with Surgery to adjust PEG tube. Albumin was 0.9 today. Had large bowel movement after enema on Thursday, no black or bloody stools. - Patient Instructions Diet: NPO Diet, Other: PEG leaking, no feeding until assess by surgery Other/Special Instructions: Transfer to [facility] for higher level of care. Dr Bailon accepting physician. - Discharge Plan *PRESCRIPTION DRUG MONITORING PROGRAM REVIEWED*: Not Applicable *COPY OF PRESCRIPTION DRUG MONITORING REPORT IN PATIENT MEGAN: Not Applicable Home Medications: Home Meds Aspirin [Adult Low Dose Aspirin EC] 81 mg PO DAILY 08/06/16 [History] Cholecalciferol (Vitamin D3) [Vitamin D3] 25 mcg PO DAILY 03/07/20 [History] Carboxymethylcellulos/Glycerin [Refresh Optive] 0 ml EYEBOTH ASDIRECTED PRN bottle 03/12/20 [Rx] Potassium Chloride [Klor-Con 10] 20 meq PO BID tab.er 03/12/20 [Rx] Pantoprazole [ProTONIX] 40 mg PO DAILY tab.cr 03/13/20 [Rx] Acetaminophen [Tylenol Extra Strength] 500 mg PO Q6H tablet 03/26/20 [Rx] Acetaminophen/HYDROcodone [[place] 325-10 MG] 1 tab PO QID PRN tablet 03/26/20 [Rx] Alum Hydroxide/Mag Hydroxide [Mag-Al] 30 ml PO Q4H PRN cup 03/26/20 [Rx] Docusate Sodium/Sennosides [Senna Plus] 1 tab PO DAILY PRN tablet 03/26/20 [Rx] Enoxaparin [Lovenox] 30 mg SUBCUT Q24H syringe 03/26/20 [Rx] Famotidine [Pepcid] 20 mg PO DAILY tablet 03/26/20 [Rx] Ferrous Sulfate 325 mg PO BIDMEALS tablet 03/26/20 [Rx] Ibuprofen [Motrin] 200 mg PO Q6H tablet 03/26/20 [Rx] Insulin Lispro [Humalog] 0 unit SUBCUT TIDMEALS pen 03/26/20 [Rx] LORazepam [Ativan] 0.5 mg PO Q4H PRN tablet 03/26/20 [Rx] Lidocaine 5% [Lidoderm 5%] 700 mg TOP Q24H patch 03/26/20 [Rx] Metoclopramide [Reglan] 5 mg PO Q8H PRN tablet 03/26/20 [Rx] Morphine 2 mg IVPUSH Q1H PRN syringe 03/26/20 [Rx] Remove Patch 1 ea TRDERM Q24H each 03/26/20 [Rx] Sodium Chloride 0.9% [Normal Saline] 250 ml IV ASDIRECTED #1 bag 03/26/20 [Rx] Sodium Chloride 0.9% [Saline Flush] 10 ml FLUSH ASDIRECTED PRN syringe 03/26/20 [Rx] bisacodyL [Dulcolax] 10 mg RECTAL DAILY PRN supp 03/26/20 [Rx] diphenhydrAMINE [Benadryl] 25 mg PO BEDTIME PRN cap 03/26/20 [Rx] - Discharge Summary/Plan Comment DC Time >30 min.: Yes - General Info Date of Service: 03/26/20 Subjective Update: Sandrita had all her covers off this morning, and her gown stating she was hot, also complaining of central chest pain that started at 8 am, lasted for 45 minutes, she stated she had not told the nurse as no one had come in yet but didn't use the call light. No chills. No nausea or vomiting. No black or bloody stools. No hematuria. Pale. Complaining of abdominal pain is worse then left thigh pain. Incentive spirometry for atelectasis on CT. Slept last night after morphine, pulled on her PEG tube last night to point it was leaking so continuous feeding was stopped, had some water/applesauce with her meds this morning and had leakage around site. She does not remember pulling on the tubing last night. Dr Nunn was contacted and he is out of town, would look at it tomorrow, to keep NPO. Her son arrived this morning, updated him on her condition and labs, discussed comfort measures vs doing full workup. Sandrita and her son both want complete workup done so called [facility] for transfer. Notified Dr Nunn patient will be transferred so will need to be assess by surgery in [place]. - Patient Data Vitals - Most Recent: Last Vital Signs Temp 98.3 F 03/26/20 13:35 Pulse 87 03/26/20 13:35 Resp 18 03/26/20 13:35 BP 130/68 03/26/20 13:35 Pulse Ox 93 L 03/26/20 04:00 Weight - Most Recent: 148 lb I&O - Last 24 hours: Intake & Output 03/26/20 03/26/20 03/26/20 06:59 14:59 22:59 Intake Total 1413 0 Balance 1413 0 Lab Results - Last 24 hrs: Laboratory Results - last 24 hr 03/25/20 03/26/20 03/26/20 Range/Units 17:48 05:19 06:30 WBC (4.5-12.0) X10-3/uL RBC (3.23-5.20) x10(6)uL Hgb (11.5-15.5) g/dL Hct (30.0-51.3) % MCV (80-96) fL MCH (27.7-33.6) pg MCHC (32.2-35.4) g/dL RDW (11.5-15.5) % Plt Count (125-369) X10(3)uL MPV (7.4-10.4) fL Add Manual Diff Neutrophils % (Manual) (46-82) % Band Neutrophils % (0-6) % Lymphocytes % (Manual) (13-37) % Monocytes % (Manual) (4-12) % Metamyelocytes % (0-0) % Myelocytes % (0-0) % Anisocytosis D-Dimer, Quantitative 25.13 H (0.0-0.59) mg/LFEU Sodium (135-145) mmol/L Potassium (3.5-5.3) mmol/L Chloride (100-110) mmol/L Carbon Dioxide (21-32) mmol/L BUN (7-18) mg/dL Creatinine (0.55-1.02) mg/dL Est Cr Clr Drug Dosing mL/min Estimated GFR (MDRD) (>60) BUN/Creatinine Ratio (9-20) Glucose (80-116) mg/dL POC Glucose 121 H 203 H (74-100) mg/dL Calcium (8.6-10.2) mg/dL Total Bilirubin (0.1-1.3) mg/dL AST (5-25) IU/L ALT (12-36) U/L Alkaline Phosphatase (56-112) IU/L Troponin I (4.0-60.3) pg/mL Total Protein (6.0-8.0) g/dL Albumin (3.2-4.6) g/dL Globulin g/dL Albumin/Globulin Ratio Lipase (73-393) U/L Blood Type Gel Antibody Screen Crossmatch 03/26/20 03/26/20 03/26/20 Range/Units 06:30 06:30 06:30 WBC 21.7 H (4.5-12.0) X10-3/uL RBC 2.43 L (3.23-5.20) x10(6)uL Hgb 6.8 L* (11.5-15.5) g/dL Hct 21.0 L* (30.0-51.3) % MCV 86.7 (80-96) fL MCH 27.9 (27.7-33.6) pg MCHC 32.2 (32.2-35.4) g/dL RDW 18.6 H (11.5-15.5) % Plt Count 527 H (125-369) X10(3)uL MPV 8.4 (7.4-10.4) fL Add Manual Diff Yes Neutrophils % (Manual) 78 (46-82) % Band Neutrophils % 3 (0-6) % Lymphocytes % (Manual) 10 L (13-37) % Monocytes % (Manual) 7 (4-12) % Metamyelocytes % 1 H (0-0) % Myelocytes % 1 H (0-0) % Anisocytosis Moderate H D-Dimer, Quantitative (0.0-0.59) mg/LFEU Sodium 140 (135-145) mmol/L Potassium 4.1 (3.5-5.3) mmol/L Chloride 107 (100-110) mmol/L Carbon Dioxide 23 (21-32) mmol/L BUN 30 H (7-18) mg/dL Creatinine 1.1 H (0.55-1.02) mg/dL Est Cr Clr Drug Dosing 26.86 mL/min Estimated GFR (MDRD) 47 L (>60) BUN/Creatinine Ratio 27.3 H (9-20) Glucose 172 H (80-116) mg/dL POC Glucose (74-100) mg/dL Calcium 7.8 L (8.6-10.2) mg/dL Total Bilirubin 0.2 (0.1-1.3) mg/dL AST 21 D (5-25) IU/L ALT 19 D (12-36) U/L Alkaline Phosphatase 249 H (56-112) IU/L Troponin I (4.0-60.3) pg/mL Total Protein 5.1 L (6.0-8.0) g/dL Albumin 0.9 L* (3.2-4.6) g/dL Globulin 4.2 g/dL Albumin/Globulin Ratio 0.2 Lipase 76 (73-393) U/L Blood Type Gel Antibody Screen Crossmatch 03/26/20 03/26/20 03/26/20 Range/Units 06:30 06:30 11:49 WBC (4.5-12.0) X10-3/uL RBC (3.23-5.20) x10(6)uL Hgb (11.5-15.5) g/dL Hct (30.0-51.3) % MCV (80-96) fL MCH (27.7-33.6) pg MCHC (32.2-35.4) g/dL RDW (11.5-15.5) % Plt Count (125-369) X10(3)uL MPV (7.4-10.4) fL Add Manual Diff Neutrophils % (Manual) (46-82) % Band Neutrophils % (0-6) % Lymphocytes % (Manual) (13-37) % Monocytes % (Manual) (4-12) % Metamyelocytes % (0-0) % Myelocytes % (0-0) % Anisocytosis D-Dimer, Quantitative (0.0-0.59) mg/LFEU Sodium (135-145) mmol/L Potassium (3.5-5.3) mmol/L Chloride (100-110) mmol/L Carbon Dioxide (21-32) mmol/L BUN (7-18) mg/dL Creatinine (0.55-1.02) mg/dL Est Cr Clr Drug Dosing mL/min Estimated GFR (MDRD) (>60) BUN/Creatinine Ratio (9-20) Glucose (80-116) mg/dL POC Glucose 124 H (74-100) mg/dL Calcium (8.6-10.2) mg/dL Total Bilirubin (0.1-1.3) mg/dL AST (5-25) IU/L ALT (12-36) U/L Alkaline Phosphatase (56-112) IU/L Troponin I 43.4 (4.0-60.3) pg/mL Total Protein (6.0-8.0) g/dL Albumin (3.2-4.6) g/dL Globulin g/dL Albumin/Globulin Ratio Lipase (73-393) U/L Blood Type O POSITIVE Gel Antibody Screen Negative Crossmatch See Detail Med Orders - Current: Current Medications Discontinued Medications Acetaminophen (Tylenol Extra Strength) 500 mg PO Q6H [facility] Last Admin: 03/26/20 10:51 Dose: 500 mg Documented by: Hydrocodone Bitart/Acetaminophen ([place] 325-10 Mg) 1 tab PO QID PRN PRN Reason: Pain (severe 7-10) Last Admin: 03/25/20 17:44 Dose: 1 tab Documented by: Al Hydroxide/Mg Hydroxide (Mag-Al Susp) 30 ml PO Q4H PRN PRN Reason: Indigestion Aspirin (Halfprin) 81 mg PO DAILY [facility] Last Admin: 03/26/20 09:28 Dose: 81 mg Documented by: Bisacodyl (Dulcolax) 10 mg RECTAL DAILY PRN PRN Reason: Constipation Carboxymethylcellulose (Refresh Optive) 0 ml EYEBOTH ASDIRECTED PRN PRN Reason: Dry Eyes Cholecalciferol (Vitamin D3) 25 mcg PO DAILY [facility] Last Admin: 03/26/20 09:28 Dose: 25 mcg Documented by: Diphenhydramine HCl (Benadryl) 25 mg PO BEDTIME PRN PRN Reason: Insomnia Last Admin: 03/25/20 22:32 Dose: 25 mg Documented by: Enoxaparin Sodium (Lovenox) 30 mg SUBCUT Q24H [facility] Last Admin: 03/26/20 14:13 Dose: Not Given Documented by: Famotidine (Pepcid) 20 mg PO DAILY [facility] Last Admin: 03/26/20 09:28 Dose: 20 mg Documented by: Ferrous Sulfate (Ferrous Sulfate) 325 mg PO BIDMEALS [facility] Last Admin: 03/26/20 09:28 Dose: 325 mg Documented by: Sodium Chloride (Normal Saline) 1,000 mls @ 75 mls/hr IV ASDIRECTED [facility] Last Admin: 03/26/20 11:32 Dose: 100 mls/hr Documented by: Sodium Chloride (Normal Saline) 250 mls @ 100 mls/hr IV ASDIRECTED [facility] Ibuprofen (Motrin) 200 mg PO Q6H [facility] Last Admin: 03/26/20 10:51 Dose: 200 mg Documented by: Insulin Human Lispro (Humalog) 0 unit SUBCUT TIDMEALS [facility]; Protocol Last Admin: 03/26/20 12:15 Dose: Not Given Documented by: Insulin Human Lispro (Humalog) 300 unit SUBCUT .STK-MED ONE Stop: 03/25/20 13:15 Iopamidol (Isovue-370 (76%)) 100 ml IV . DIRECTED ONE Stop: 03/25/20 11:47 Last Admin: 03/25/20 12:08 Dose: 85 ml Documented by: Lidocaine (Lidoderm 5%) 700 mg TOP Q24H [facility] Last Admin: 03/25/20 17:53 Dose: 700 mg Documented by: Lorazepam (Ativan) 0.5 mg PO Q4H PRN PRN Reason: Anxiety Last Admin: 03/25/20 20:29 Dose: 0.5 mg Documented by: Meropenem (Merrem) 1 gm IVPUSH Q12H [facility] Last Admin: 03/25/20 23:14 Dose: 1 gm Documented by: Metoclopramide HCl (Reglan) 5 mg PO Q8H PRN PRN Reason: Nausea/Vomiting Mirtazapine (Remeron) 15 mg PO BEDTIME [facility] Last Admin: 03/24/20 20:02 Dose: 15 mg Documented by: Miscellaneous Information (Remove Patch) 1 ea TRDERM Q24H [facility] Last Admin: 03/26/20 05:14 Dose: 1 ea Documented by: Morphine Sulfate (Morphine) 1 mg IVPUSH ONETIME ONE Stop: 03/25/20 14:22 Last Admin: 03/25/20 14:34 Dose: 1 mg Documented by: Morphine Sulfate (Morphine) 2 mg IVPUSH Q1H PRN PRN Reason: Pain (severe 7-10) Last Admin: 03/26/20 11:15 Dose: 2 mg Documented by: Pantoprazole Sodium (Protonix) 40 mg PO ACBREAKFAST [facility] Last Admin: 03/26/20 06:38 Dose: 40 mg Documented by: Potassium Chloride (Klor-Con M20) 20 meq PO DAILY [facility] Last Admin: 03/26/20 09:28 Dose: 20 meq Documented by: Senna/Docusate Sodium (Senna Plus) 1 tab PO DAILY PRN PRN Reason: Constipation Sodium Chloride (Saline Flush) 10 ml FLUSH ASDIRECTED PRN PRN Reason: Keep Vein Open Last Admin: 03/24/20 17:41 Dose: 10 ml Documented by: Trazodone HCl (Trazodone) 50 mg PO BEDTIME PRN PRN Reason: Insomnia Last Admin: 03/25/20 20:29 Dose: 50 mg Documented by: - Exam General: Reports: Alert, Cooperative, Mild Distress, Other (anasarca) Lungs: Reports: Clear to Auscultation, Normal Respiratory Effort, Crackles (fine bibasilar). Denies: Wheezing Cardiovascular: Reports: Regular Rate, Regular Rhythm, Murmurs GI/Abdominal Exam: Normal Bowel Sounds, Soft, Distended, Tender (RLQ, LLQ) Extremities: Pedal Edema *Q Meaningful Use (DIS) - VTE *Q VTE Mechanical Contraindications *Q: Bilateral Lower Edema
== END 2020-03-26 14:00 | DRG 682 ==
LOC: FB.MS 15:25
PROVIDERS: ADMIT Family Medicine; ATTEND Family Medicine
PROC: 30233N1 Transfusion of Nonautologous Red Blood Cells into Peripheral Vein, Percutaneous Approach (ICD-10-PCS; principal; 2020-03-24)
DX: N17.9 Acute kidney failure, unspecified (principal); E43 Unspecified severe protein-calorie malnutrition; K55.1 Chronic vascular disorders of intestine; C49.9 Malignant neoplasm of connective and soft tissue, unspecified; K94.23 Gastrostomy malfunction; E86.0 Dehydration; K59.00 Constipation, unspecified; D72.829 Elevated white blood cell count, unspecified; D47.3 Essential (hemorrhagic) thrombocythemia; K21.9 Gastro-esophageal reflux disease without esophagitis; D50.9 Iron deficiency anemia, unspecified; E11.9 Type 2 diabetes mellitus without complications; E87.6 Hypokalemia; H54.7 Unspecified visual loss; E78.00 Pure hypercholesterolemia, unspecified; I10 Essential (primary) hypertension; M19.90 Unspecified osteoarthritis, unspecified site; R07.9 Chest pain, unspecified; G89.29 Other chronic pain; M54.9 Dorsalgia, unspecified; F41.9 Anxiety disorder, unspecified; Z85.831 Personal history of malignant neoplasm of soft tissue; Z79.82 Long term (current) use of aspirin; Z79.899 Other long term (current) drug therapy; Z79.4 Long term (current) use of insulin; Z87.440 Personal history of urinary (tract) infections; Z90.89 Acquired absence of other organs; Z98.49 Cataract extraction status, unspecified eye; Z90.710 Acquired absence of both cervix and uterus; Z88.8 Allergy status to other drugs, medicaments and biological substances; Z88.5 Allergy status to narcotic agent; Z86.711 Personal history of pulmonary embolism; Z79.01 Long term (current) use of anticoagulants; Z86.010 Personal history of colon polyps; Z68.29 Body mass index [BMI] 29.0-29.9, adult
CPT/HCPCS: 36415; 36430; 74177; 80053; 82962; 83690; 84484; 85025; 85379; 86850; 86900; 86901; 86920; 86922; 93005; 94150; A9270-GY; J1650; J1815; J2185; J2270; J7030; P9016; Q9967